=== PATIENT | male | born 1950 | race Caucasian/White ===

== ENCOUNTER 2017-03-23 16:55 | Emergency (ER) | payer MEDICAID ==
[2017-03-23] MEDS ORDERED: TETANUS/DIPHTHERIA/PERTUSSIS 0.5 ML SYRINGE IM ONE ×2 (17:46→18:03)
[2017-03-23 18:04] LABS: BASOPHILS # (AUTO) 0.1 10^3/uL (0.0-0.1); BASOPHILS % (AUTO) 2.9 %; EOSINOPHILS # (AUTO) 0.1 10^3/uL (0.0-0.7); EOSINOPHILS % (AUTO) 1.7 %; HCT - HEMATOCRIT 36.7 % (42.0-52.0); HGB - HEMOGLOBIN 12.6 g/dL (14.0-18.0); LYMPHOCYTES # (AUTO) 1.3 10^3/uL (1.5-3.5); LYMPHOCYTES % (AUTO) 41.4 %; MEAN CORPUSCULAR HEMOGLOBIN 34.5 pg (27.0-31.0); MEAN CORPUSCULAR HGB CONC 34.2 g/dL (32.0-36.0); MEAN CORPUSCULAR VOLUME 100.7 fL (80.0-94.0); MEAN PLATELET VOLUME 7.8 fL (7.4-11.4); MONOCYTES # (AUTO) 0.2 10^3/uL (0.0-1.0); MONOCYTES % (AUTO) 7.7 %; NEUTROPHILS # (AUTO) 1.5 10^3/uL (1.5-6.6); NEUTROPHILS % (AUTO) 46.3 %; RED BLOOD COUNT 3.64 10^6/uL (4.70-6.10); UNCORRECTED WHITE BLOOD COUNT 3.2 x10^3/uL; WHITE BLOOD COUNT 3.2 x10^3/uL (4.8-10.8)
[2017-03-23 18:17] LABS: ALBUMIN/GLOBULIN RATIO 1.1 (1.0-2.2); BILIRUBIN,TOTAL 0.4 mg/dL (0.2-1.0); CALCIUM 8.9 mg/dL (8.5-10.3); POTASSIUM 3.4 mmol/L (3.5-5.0); TOTAL PROTEIN 7.7 g/dL (6.7-8.2)
--- NOTE | 2017-03-23 19:05 | ED Physician Documentation ---
History of Present Illness - Stated complaint Stated Complaint: R/L ARM WOUNDS - Chief complaint Chief Complaint: Heent - History obtained from History obtained from: Patient - Additonal information Additional information: The patient is a 66-year-old male who presents with bruising on his forearms. He states that his skin bruises and bleeds by merely bumping into something. He does not take any blood thinner medication, and does not use steroids. He states, "I drink a little beer now and then." He admits to past history of heavy drinking whiskey, but states that he drinks hard liquor. He denies any recent traumatic injuries. Review of Systems Constitutional: denies: Fever Ears: denies: Tinnitus/ringing Nose: denies: Congestion Throat: denies: Sore throat Cardiac: denies: Chest pain / pressure, Palpitations Respiratory: denies: Dyspnea, Cough GI: denies: Abdominal Pain, Nausea, Vomiting : denies: Dysuria Skin: reports: Other (bruising of forearms) Musculoskeletal: denies: Neck pain, Back pain, Extremity pain Neurologic: denies: Focal weakness, Numbness, Headache Endocrine: reports: Easy bruising / bleeding PD PAST MEDICAL HISTORY - Past Medical History Endocrine/Autoimmune: None GI: GI bleed Musculoskeletal: Osteoarthritis, Chronic back pain - Past Surgical History Past Surgical History: No Ortho: Other - Present Medications Home Medications: Ambulatory Orders Medication Instructions Recorded Confirmed No Known Home Medications [No 02/07/16 02/07/16 Known Home Medications] - Allergies Allergies/Adverse Reactions: Allergies Allergy/AdvReac Type Severity Reaction Status Date / Time No Known Drug Allergies Allergy Verified 02/07/16 17:43 - Social History Does the pt smoke?: Yes Does the pt drink ETOH?: Yes ETOH Use: Beer Does the pt have substance abuse?: No - Immunizations Immunizations are current?: No PD ED PE NORMAL - Vitals Vital signs reviewed: Yes (normal) - General General: Alert and oriented X 3, Well developed/nourished, Other (Stale odor of alcohol on breath.) - HEENT HEENT: Atraumatic, EOMI, Pharynx benign - Neck Neck: Supple, no meningeal sign, No adenopathy, No JVD - Cardiac Cardiac: RRR, No murmur - Respiratory Respiratory: No respiratory distress, Clear bilaterally - Abdomen Abdomen: Soft, Non tender, No organomegaly - Back Back: No CVA TTP - Derm Derm: No rash - Extremities Extremities: No edema, No calf tenderness / cord, Other (There are numerous patches of superficial ecchymosis of the dorsums of both forearms, with few superficial skin tears.) - Neuro Neuro: Alert and oriented X 3, No motor deficit, Normal speech Results - Vitals Vitals: Vital Signs - 24 hr 03/23/17 03/23/17 16:59 19:12 Temperature 36.1 C L 36.1 C L Heart Rate 114 H 92 Respiratory 20 18 Rate Blood Pressure 120/73 121/79 O2 Saturation 96 97 Oxygen O2 Source Room air - Labs Labs: Laboratory Tests 03/23/17 03/23/17 17:55 17:55 WBC 3.2 L RBC 3.64 L Hgb 12.6 L Hct 36.7 L MCV 100.7 H MCH 34.5 H MCHC 34.2 RDW 14.0 Plt Count 194 MPV 7.8 Neut # 1.5 Lymph # 1.3 L [place] # 0.2 Eos # 0.1 Baso # 0.1 Absolute Nucleated RBC 0.00 Nucleated RBCs 0.0 Sodium 135 Potassium 3.4 L Chloride 105 Carbon Dioxide 20 L Anion Gap 10.0 BUN 10 Creatinine 1.0 Estimated GFR (MDRD) 75 L Glucose 148 H Calcium 8.9 Total Bilirubin 0.4 AST 32 ALT 24 Alkaline Phosphatase 73 Total Protein 7.7 Albumin 4.1 Globulin 3.6 Albumin/Globulin Ratio 1.1 Lipase 47 PD MEDICAL DECISION MAKING - ED course Complexity details: reviewed results, considered differential, d/w patient ED course: The patient's presentation with easy bruising and skin tears on his forearms is most consistent with capillary fragility, which is commonly seen in people with chronic alcoholism. I discussed this with the patient, advising that there is no other specific treatment for this condition but that refraining from alcohol may help it from getting progressively worse. Departure - Departure Disposition: 01 Home, Self Care Clinical Impression: Capillary fragility Condition: Stable Instructions: ED Avulsion Dermal Follow-Up: [facility] [Provider Group] Comments: Try to refrain from alcohol. You can apply antibiotic ointment to the superficial skin tears. Follow up with your primary physician within 2 weeks. Call to schedule appointment. Return to the emergency department if you develop any sign of infection, or otherwise worsening symptoms. Discharge Date/Time: 03/23/17 19:12
[2017-03-23 19:19] VITALS: BP 121/79
== END 2017-03-23 19:12 | disposition home or self-care (01) ==
LOC: ED 16:55
DX: D69.8 Other specified hemorrhagic conditions (principal); M19.90 Unspecified osteoarthritis, unspecified site
CPT/HCPCS: 36415; 80053; 83690; 85025; 90471; 99283

== ENCOUNTER 2018-05-24 18:19 | Outpatient (CLI) | payer MEDICAID, MEDICARE | END 2018-05-24 18:20 | disposition critical access hospital (66) | LOC: EMS 18:19 | PROVIDERS: ATTEND Surgery | DX: M54.9 Dorsalgia, unspecified (principal) | CPT/HCPCS: A0425; A0429; A0999 ==

== ENCOUNTER 2018-05-24 18:40 | Emergency (ER) | payer MEDICAID, MEDICARE ==
[2018-05-24 18:58] VITALS: BP 131/100
--- NOTE | 2018-05-24 19:21 | ED Physician Documentation ---
History of Present Illness - Stated complaint Stated Complaint: ETOH/BACK PAIN - Chief complaint Chief Complaint: Back Pain - History obtained from History obtained from: Patient, EMS - History of Present Illness Timing: Chronic Pain level max: 8 Pain level now: 0 - Additonal information Additional information: Patient is a 67-year-old male with chronic back pain he states his back pain became worse today. States that is better now. States he has only drinks a beer and a half today. He is visibly intoxicated. There was no fall or trauma. He is ambulating and moving without any difficulty in the ED. Review of Systems Ten Systems: 10 systems reviewed and negative Constitutional: denies: Fever, Chills Eyes: denies: Decreased vision Ears: denies: Ear pain Nose: denies: Rhinorrhea / runny nose, Congestion Throat: denies: Sore throat Cardiac: denies: Chest pain / pressure Respiratory: denies: Cough GI: denies: Abdominal Pain, Nausea, Vomiting, Diarrhea Skin: denies: Rash Musculoskeletal: denies: Neck pain, Back pain Neurologic: denies: Focal weakness, Numbness, Headache PD PAST MEDICAL HISTORY - Past Medical History Past Medical History: Yes Endocrine/Autoimmune: None GI: GI bleed Musculoskeletal: Osteoarthritis, Chronic back pain - Past Surgical History Past Surgical History: No Ortho: Other - Present Medications Home Medications: Ambulatory Orders Medication Instructions Recorded Confirmed No Known Home Medications 02/07/16 02/07/16 - Allergies Allergies/Adverse Reactions: Allergies Allergy/AdvReac Type Severity Reaction Status Date / Time No Known Drug Allergies Allergy Verified 02/07/16 17:43 - Social History Does the pt smoke?: Yes Smoking Status: Current every day smoker Does the pt drink ETOH?: Yes ETOH Use: Beer Does the pt have substance abuse?: No - Immunizations Immunizations are current?: No - POLST Patient has POLST: No PD ED PE NORMAL - Vitals Vital signs reviewed: Yes - General General: Alert and oriented X 3, No acute distress - HEENT HEENT: Atraumatic, PERRL, Moist mucous membranes - Neck Neck: Supple, no meningeal sign, No bony TTP - Cardiac Cardiac: RRR, Strong equal pulses - Respiratory Respiratory: No respiratory distress, Clear bilaterally - Abdomen Abdomen: Soft, Non tender, Non distended - Back Back: No spinal TTP (no step off or deformity), Other (Normal bilateral lower extremity patellar and ankle jerk reflexes. Normal great toe extension bilaterally. no saddle anesthesia) - Derm Derm: Warm and dry - Extremities Extremities: No edema, No calf tenderness / cord - Neuro Neuro: Alert and oriented X 3 - Psych Psych: Normal mood, Normal affect Results - Vitals Vitals: Vital Signs - 24 hr 05/24/18 18:48 Temperature 36.6 C Heart Rate 83 Respiratory 16 Rate Blood Pressure 131/100 H O2 Saturation 98 Oxygen O2 Source Room air PD MEDICAL DECISION MAKING - ED course Complexity details: considered differential (No cauda equina, no spinal epidural abscess, no fracture, no aortic dissection or evidence of aneursym rupture), d/w patient ED course: Patient is a 67-year-old male who complains of chronic back pain. No acute changes today. He is intoxicated though he is not slurring his words and ambulates with a steady gait. Counseled to follow-up with his doctor for further care. No evidence of acute fracture. No bruises. No step-off or deformity. No tenderness. Ambulating without any difficulty. Patient counseled regarding signs and symptoms for which I believe and urgent re- evaluation would be necessary. Patient with good understanding of and agreement to plan and is comfortable going home at this time This document was made in part using voice recognition software. While efforts are made to proofread this document, sound alike and grammatical errors may occur. - Sepsis Event Vital Signs: Vital Signs - 24 hr 05/24/18 18:48 Temperature 36.6 C Heart Rate 83 Respiratory 16 Rate Blood Pressure 131/100 H O2 Saturation 98 Oxygen O2 Source Room air Departure - Departure Disposition: 01 Home, Self Care Clinical Impression: Back pain Qualifiers: Back pain location: low back pain Chronicity: chronic Back pain laterality: bilateral Sciatica presence: without sciatica Qualified Code(s): M54.5 - Low back pain Alcohol intoxication Qualifiers: Complication of substance-induced condition: uncomplicated Qualified Code(s): F10.920 - Alcohol use, unspecified with intoxication, uncomplicated Condition: Good Instructions: ED Alcohol Intoxication, ED Neck Back Pain General Follow-Up: your,doctor in 1 week [Other] Comments: Follow-up with your doctor for further care of your back. Discharge Date/Time: 05/24/18 19:39
== END 2018-05-24 19:39 | disposition home or self-care (01) ==
LOC: EDUNIT# → ED 18:40
DX: M54.5 Low back pain (principal); F10.920 Alcohol use, unspecified with intoxication, uncomplicated; G89.29 Other chronic pain; F17.200 Nicotine dependence, unspecified, uncomplicated
CPT/HCPCS: 99282; 99283

== ENCOUNTER 2019-03-22 18:59 | Outpatient (CLI) | payer MEDICARE | END 2019-03-22 19:00 | disposition critical access hospital (66) | LOC: EMS 18:59 | PROVIDERS: ATTEND Surgery | DX: S01.81XA Laceration without foreign body of other part of head, initial encounter (principal); R55 Syncope and collapse; W18.39XA Other fall on same level, initial encounter | CPT/HCPCS: A0425; A0429 ==

== ENCOUNTER 2019-03-22 19:21 | Emergency (ER) | payer MEDICARE ==
--- NOTE | 2019-03-22 19:24 | ED Physician Documentation ---
PD HPI HEAD INJURY - Stated complaint Stated Complaint: GLF/HEAD INJ/LOC - History obtained from History obtained from: Patient - History of Present Illness Mechanism of head injury: Fell (he says he does not know why he fell. Remembers the fall and striking head. Does not think he passed out.) Timing - onset: Today Location of injury: Front Quality of pain: Aching Associated symptoms: No: LOC, AMS, Nausea / vomiting Symptoms worsen with: Palpation Contributing factors: Intoxicated. No: Anticoagulated Similar symptoms before: Diagnosis (has had other falls when intoxicated.) Review of Systems Constitutional: denies: Fever Nose: denies: Rhinorrhea / runny nose, Congestion Throat: denies: Sore throat Respiratory: denies: Cough GI: denies: Abdominal Pain, Nausea, Vomiting, Diarrhea Skin: reports: Laceration (s) (from fall [employer]). denies: Rash, Lesions Musculoskeletal: reports: Neck pain (today after fall), Back pain (ongoing chronic mid back pain) Neurologic: reports: Headache (frontal area), Head injury. denies: Focal weakness, Numbness, Altered mental status Endocrine: denies: Easy bruising / bleeding Immunocompromised: denies: Immunocompromised PD PAST MEDICAL HISTORY - Past Medical History Cardiovascular: None Respiratory: None Neuro: None Endocrine/Autoimmune: None GI: GI bleed Musculoskeletal: Osteoarthritis, Chronic back pain - Past Surgical History Past Surgical History: No Ortho: Other - Present Medications Home Medications: Ambulatory Orders Medication Instructions Recorded Confirmed Naproxen 375 mg PO BID #20 tablet 03/22/19 dexAMETHasone [Decadron] 4 mg PO DAILY #5 tablet 03/22/19 - Allergies Allergies/Adverse Reactions: Allergies Allergy/AdvReac Type Severity Reaction Status Date / Time No Known Drug Allergies Allergy Verified 03/22/19 19:32 - Social History Does the pt smoke?: Yes Smoking Status: Current every day smoker Does the pt drink ETOH?: Yes Does the pt have substance abuse?: No - Immunizations Immunizations are current?: No - POLST Patient has POLST: No PD ED PE NORMAL - Vitals Vital signs reviewed: Yes - General General: Alert and oriented X 3 (repetitive some, but not perseveration like head injury. Seems more forgetful of what he has already said. Slight slurring of speech. Smell of alcohol on breath. ), No acute distress, Well developed/nourished - HEENT HEENT: PERRL, EOMI, Pharynx benign, Other (forehead laceration vertical, 1.5 cm, no FB nor bleeding at this time. Some mild abrasions on forehead as well. ) - Neck Neck: Supple, no meningeal sign, No adenopathy, Other (not tender in neck, but claims some pain with ROM as he moves it around in full ROM. ) - Cardiac Cardiac: RRR, No murmur - Respiratory Respiratory: Clear bilaterally, Other (no chestwall tenderness) - Abdomen Abdomen: Soft, Non tender - Back Back: No CVA TTP, No spinal TTP - Derm Derm: Normal color, Warm and dry - Extremities Extremities: No tenderness to palpate, Normal ROM s pain - Neuro Neuro: Alert and oriented X 3, No motor deficit, No sensory deficit, Normal speech Eye Opening: Spontaneous Motor: Obeys Commands Verbal: Oriented GCS Score: 15 Results - Vitals Vitals: Vital Signs - 24 hr 03/22/19 21:28 Heart Rate 70 Respiratory 20 Rate Blood Pressure 118/74 O2 Saturation 99 Oxygen O2 Source Room air - Labs Labs: Laboratory Tests 03/22/19 03/22/19 19:54 19:54 WBC 4.8 RBC 3.67 L Hgb 12.1 L Hct 35.7 L MCV 97.3 H MCH 33.0 H MCHC 33.9 RDW 13.4 Plt Count 210 MPV 9.4 Neut # (Auto) 2.3 Lymph # (Auto) 2.0 [place] # (Auto) 0.4 Eos # (Auto) 0.1 Baso # (Auto) 0.1 Absolute Nucleated RBC 0.00 Nucleated RBC % 0.0 Sodium 133 L Potassium 3.8 Chloride 103 Carbon Dioxide 18 L Anion Gap 12.0 BUN 13 Creatinine 0.9 Estimated GFR (MDRD) 84 L Glucose 95 Calcium 8.2 L Magnesium 2.1 Total Bilirubin 0.4 AST 21 ALT 13 Alkaline Phosphatase 71 Total Protein 6.8 Albumin 3.8 Globulin 3.0 Albumin/Globulin Ratio 1.3 Lipase 33 Ethyl Alcohol 250.8 Procedures - Laceration (location) forehead Length in cm: 1.5 Wound type: Linear, Into subcut fat, Clean Neurovascular status: Sensory intact Wound Preparation: Irrigated copiously NS, Wound explored, To the base. No: FB identified Skin layer closure: Dermabond, Steri strips Other: Patient tolerated well, Tetanus UTD Complexity: Simple PD MEDICAL DECISION MAKING - ED course Complexity details: reviewed results, re-evaluated patient, considered differential, d/w patient Departure - Departure Disposition: 01 Home, Self Care Clinical Impression: Alcohol intoxication Qualifiers: Complication of substance-induced condition: uncomplicated Qualified Code(s): F10.920 - Alcohol use, unspecified with intoxication, uncomplicated Accidental fall Qualifiers: Encounter type: initial encounter Qualified Code(s): W19.XXXA - Unspecified fall, initial encounter Chronic back pain Qualifiers: Back pain location: back pain in unspecified location Back pain laterality: unspecified Qualified Code(s): M54.9 - Dorsalgia, unspecified Forehead laceration Qualifiers: Encounter type: initial encounter Qualified Code(s): S01.81XA - Laceration without foreign body of other part of head, initial encounter Condition: Stable Record reviewed to determine appropriate education?: Yes Instructions: ED Alcohol Intoxication, ED Laceration Facial Skin Glue Prescriptions: dexAMETHasone [Decadron] 4 mg PO DAILY #5 tablet Naproxen 375 mg PO BID #20 tablet Comments: Keep the wound clean and dry. Allow the Steri-Strips to fall off on their own after several days to week. Avoid excess alcohol. For your back pains, use naproxen anti-inflammatories twice daily with food. You could also use Decadron steroid anti-inflammatory for the next several days. See if this will help some ear pains acutely. Follow-up with your primary care. Discharge Date/Time: 03/22/19 21:38
[2019-03-22] MEDS ORDERED: SODIUM CHLORIDE 0.9% 1,000 ML IV ONE (19:46)
[2019-03-22] MEDS ORDERED: KETOROLAC 15 MG/ML VIAL IVP STA (19:47)
[2019-03-22 19:59] LABS: BASOPHILS # (AUTO) 0.1 10^3/uL (0.0-0.1); BASOPHILS % (AUTO) 1.2 %; EOSINOPHILS # (AUTO) 0.1 10^3/uL (0.0-0.7); EOSINOPHILS % (AUTO) 1.9 %; HGB - HEMOGLOBIN 12.1 g/dL (14.0-18.0); LYMPHOCYTES % (AUTO) 42.4 %; MEAN CORPUSCULAR HGB CONC 33.9 g/dL (32.0-36.0); MEAN CORPUSCULAR VOLUME 97.3 fL (80.0-94.0); MEAN PLATELET VOLUME 9.4 fL (7.4-11.4); MONOCYTES # (AUTO) 0.4 10^3/uL (0.0-1.0); MONOCYTES % (AUTO) 7.5 %; NEUTROPHILS # (AUTO) 2.3 10^3/uL (1.5-6.6); NEUTROPHILS % (AUTO) 46.8 %; PLT - PLATELET COUNT 210 10^3/uL (130-450); RED BLOOD COUNT 3.67 10^6/uL (4.70-6.10); RED CELL DISTRIBUTION WIDTH 13.4 % (12.0-15.0); WHITE BLOOD COUNT 4.8 x10^3/uL (4.8-10.8)
[2019-03-22 20:12] LABS: ALBUMIN 3.8 g/dL (3.2-5.5); ALBUMIN/GLOBULIN RATIO 1.3 (1.0-2.2); BILIRUBIN,TOTAL 0.4 mg/dL (0.2-1.0); CALCIUM 8.2 mg/dL (8.5-10.3); CREATININE 0.9 mg/dL (0.6-1.2); MAGNESIUM 2.1 mg/dL (1.7-2.8); TOTAL PROTEIN 6.8 g/dL (6.7-8.2)
--- NOTE | 2019-03-22 20:33 | CT Report ---
Reason: fall and struck head with LOC Procedure Date: 03/22/2019 Accession Number: [id number] / [id number] Procedure: CT - HEAD WO CPT Code: FULL RESULT: EXAM: CT HEAD EXAM DATE: 03/22/2019 08:02 PM. CLINICAL HISTORY: Fall and struck head with LOC. COMPARISON: None. TECHNIQUE: Multiaxial CT images were obtained from the foramen magnum to the vertex. Reformats: Sagittal and coronal. IV contrast: None. In accordance with CT protocol optimization, one or more of the following dose reduction techniques were utilized for this exam: automated exposure control, adjustment of mA and/or KV based on patient size, or use of iterative reconstructive technique. FINDINGS: Parenchyma: No intraparenchymal hemorrhage. No evidence of mass, midline shift, or CT findings of acute infarction. Bell-white differentiation is distinct. Diffuse chronic microangiopathic white matter changes are evident. Extraaxial Spaces: Normal for age. No subdural or epidural collections identified. Ventricles: The ventricles and cortical sulci are enlarged, consistent with age-related tissue loss. Sinuses and orbits: Circumferential lobular mucosal thickening in right maxillary sinus with mixed air/fluid and mucus. Mucosal thickening within a few ethmoid air cells on the right greater than left. Pattern not suggestive of posttraumatic change. Imaged paranasal sinuses, orbits, and mastoids otherwise show no significant abnormality. Bones: No evidence of fracture or calvarial defect. Other: None. IMPRESSION: 1. Generalized age-related cortical atrophic changes without evidence of acute intracranial abnormality. No hemorrhage. No acute posttraumatic change. 2. Circumferential mucosal thickening in right maxillary sinus with mucus/air fluid level. Pattern not suggestive of acute posttraumatic change. 3. Exam otherwise as above. RADIA
--- NOTE | 2019-03-22 20:39 | CT Report ---
Reason: fall and struck head/neck pain Procedure Date: 03/22/2019 Accession Number: [id number] / [id number] Procedure: CT - CERVICAL SPINE WO CPT Code: FULL RESULT: EXAM: CT CERVICAL SPINE WITHOUT CONTRAST DATE: 03/22/2019 08:11 PM. HISTORY: Fall and struck head/neck pain. COMPARISONS: XR CERVICAL SPINE 2 OR 3 VIEWS 10/19/2007 8:41 PM. TECHNIQUE: Thin-section axial images were acquired of the cervical spine without contrast. Post-processing: Coronal and sagittal reformats. Other: None. In accordance with CT protocol optimization, one or more of the following dose reduction techniques were utilized for this exam: automated exposure control, adjustment of mA and/or KV based on patient size, or use of iterative reconstructive technique. FINDINGS: Alignment: Mild leftward convex curve again seen. No rotational abnormality. Minimal anterolisthesis C4 and C5 unchanged. Minimal anterolisthesis C7 on T1 also unchanged compared to prior plain film exam from 2007. No new spondylolisthesis. Bones: No fracture or bone lesion. Interspace Levels/Facets: C1-C2: Unremarkable C2-C3: No canal stenosis. Facet hypertrophy greater on the right. C3-C4: Mild disk space narrowing and endplate spurring. Facet hypertrophy greater on the right. No canal stenosis. C4-C5: Anterolisthesis. Disk space narrowing. Asymmetric uncovertebral joint and facet hypertrophy on the right. Mild right foraminal stenosis. No left foraminal stenosis. No canal stenosis. C5-C6: Severe disk space narrowing and endplate spurring are again seen. Uncovertebral joint and facet hypertrophy greater on the right. Moderate right foraminal stenosis. Mild relative canal narrowing. No left foraminal stenosis. C6-C7: Severe disk space narrowing and endplate spurring with bridging osteophyte anteriorly. Facet hypertrophy and uncovertebral joint hypertrophy greater on the left. Relatively severe left foraminal stenosis. Mild right foraminal narrowing. C7-T1: Anterolisthesis. No canal stenosis. Bilateral facet hypertrophy. No foraminal stenosis. Musculature: Normal. No fatty atrophy. Other: The paravertebral and prevertebral soft tissues are unremarkable. The lung apices are clear. IMPRESSION: 1. No acute posttraumatic change. No fracture. No abnormal soft tissue swelling. 2. Interval increase in chronic spondylotic changes in cervical spine with minimal degenerative anterolisthesis C4 on C5 and C7 on T1, similar to findings on prior C-spine exam. 3. Examination otherwise as detailed above. RADIA
[2019-03-22] MEDS: LIDOCAINE-EPINEPH-TETRACAINE 3 ML SYRINGE TOP STA ×2 (20:45→20:46)
[2019-03-22 21:42] VITALS: BP 118/74
== END 2019-03-22 21:38 | disposition home or self-care (01) ==
LOC: EDUNIT# → EDBD → ED 19:21
DX: S01.81XA Laceration without foreign body of other part of head, initial encounter (principal); S00.81XA Abrasion of other part of head, initial encounter; W18.30XA Fall on same level, unspecified, initial encounter; F10.920 Alcohol use, unspecified with intoxication, uncomplicated; M47.812 Spondylosis without myelopathy or radiculopathy, cervical region; M54.9 Dorsalgia, unspecified; G89.29 Other chronic pain; F17.200 Nicotine dependence, unspecified, uncomplicated
CPT/HCPCS: 12011; 36415; 70450; 72125; 80053; 80320; 83690; 83735; 85025; 96361; 96374

== ENCOUNTER 2019-09-18 19:11 | Outpatient (CLI) | payer MEDICARE | END 2019-09-18 19:12 | disposition critical access hospital (66) | LOC: EMS 19:11 | PROVIDERS: ATTEND Surgery | DX: R53.1 Weakness (principal) | CPT/HCPCS: A0425; A0429 ==

== ENCOUNTER 2019-09-18 19:31 | Emergency (ER) | payer MEDICARE ==
[2019-09-18] MEDS ORDERED: SODIUM CHLORIDE 0.9% 1,000 ML IV STA (19:38)
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
[2019-09-18 20:02] LABS: BASOPHILS % (AUTO) 0.8 %; EOSINOPHILS % (AUTO) 0.8 %; HGB - HEMOGLOBIN 14.8 g/dL (14.0-18.0); LYMPHOCYTES # (AUTO) 0.9 10^3/uL (1.5-3.5); LYMPHOCYTES % (AUTO) 16.3 %; MEAN CORPUSCULAR HEMOGLOBIN 33.3 pg (27.0-31.0); MEAN CORPUSCULAR VOLUME 97.8 fL (80.0-94.0); MEAN PLATELET VOLUME 9.1 fL (7.4-11.4); MONOCYTES # (AUTO) 0.7 10^3/uL (0.0-1.0); MONOCYTES % (AUTO) 12.3 %; NEUTROPHILS # (AUTO) 3.7 10^3/uL (1.5-6.6); NEUTROPHILS % (AUTO) 69.6 %; PLT - PLATELET COUNT 156 10^3/uL (130-450); RED BLOOD COUNT 4.45 10^6/uL (4.70-6.10); RED CELL DISTRIBUTION WIDTH 13.8 % (12.0-15.0); WHITE BLOOD COUNT 5.3 x10^3/uL (4.8-10.8)
[2019-09-18 20:18] LABS: ALBUMIN 4.2 g/dL (3.2-5.5); BILIRUBIN,TOTAL 0.7 mg/dL (0.2-1.0); MAGNESIUM 1.9 mg/dL (1.7-2.8); TOTAL PROTEIN 8.4 g/dL (6.7-8.2)
--- NOTE | 2019-09-18 20:25 | XRAY Report ---
Reason: Chest Pain Procedure Date: 09/18/2019 Accession Number: [id number] / [id number] Procedure: XR - Chest 1 View X-Ray CPT Code: 64999 Final Report FULL RESULT: EXAM: CHEST RADIOGRAPHY EXAM DATE: 09/18/2019 08:10 PM. CLINICAL HISTORY: Chest Pain. COMPARISON: 09/22/2009 11:19 AM. TECHNIQUE: 1 view. FINDINGS: Evaluation somewhat limited by rotation. Lungs/Pleura: No infiltrates. No pleural effusions or pneumothorax. Mediastinum: Heart size likely within normal limits given technique. Osseous structures: No significant focal osseous lesions. IMPRESSION: 1. Evaluation somewhat limited by rotation. 2. No definite acute cardiopulmonary findings radiographically. RADIA
[2019-09-18 21:08] LABS: BILIRUBIN,URINE NEGATIVE (NEGATIVE); GLUCOSE, URINE (UA) NEGATIVE (NEGATIVE); KETONES,URINE (UA) TRACE mg/dL (NEGATIVE); LEUKOCYTE ESTERASE, URINE NEGATIVE (NEGATIVE); NITRITE,URINE NEGATIVE (NEGATIVE); OCCULT BLOOD,URINE NEGATIVE (NEGATIVE); PROTEIN,URINE NEGATIVE (NEGATIVE); UROBILINOGEN,URINE 1 (NORMAL) E.U./dL (NORMAL)
[2019-09-18 21:10] LABS: CLARITY,URINE CLEAR (CLEAR)
[2019-09-19 08:00] LABS: PHOSPHORUS 3.9 mg/dL (2.5-4.6)
[2019-09-19 12:36] VITALS: BP 130/99
--- NOTE | 2019-09-19 14:42 | ED Physician Documentation ---
ED Addendum - Addendum Addendum: 09/19/19 14:39 The patient has been here in the emergency department with out any consequence. He was seen by social work and they researched his potential possibilities of in-home longterm health care physical therapy and such. He apparently did not have any criteria enough for hospitalization. He was having generalized weakness gradually and now to the point of having difficulty walking. We can see if a walker will help him. Reportedly he does not have resources or meet criteria for rehab or halfway facility. He will be discharged home with a walker and to continue usual medications and stay well-hydrated. He does not appear to be on any statin medication. His electrolytes were reasonable. Prognosis generalized weakness #2 leg muscle weakness #3 deconditioning #4 difficulty walking Disposition the patient is discharged home in stable condition.
== END 2019-09-19 14:58 | disposition home or self-care (01) ==
LOC: EDUNIT# → ED 19:31
DX: M62.81 Muscle weakness (generalized) (principal); R26.2 Difficulty in walking, not elsewhere classified; E87.1 Hypo-osmolality and hyponatremia; F17.210 Nicotine dependence, cigarettes, uncomplicated
CPT/HCPCS: 36415; 71045; 80053; 81001; 81003; 82550; 83690; 83735; 83880; 84100; 84443; 84484; 85025; 85651; 87086; 93005; 99284

== ENCOUNTER 2019-09-19 17:22 | Outpatient (CLI) | payer MEDICARE | END 2019-09-19 17:23 | disposition critical access hospital (66) | LOC: EMS 17:22 | PROVIDERS: ATTEND Surgery | DX: R53.1 Weakness (principal) | CPT/HCPCS: A0425; A0429 ==

== ENCOUNTER 2019-09-19 17:44 | Emergency (ER) | payer MEDICARE ==
--- NOTE | 2019-09-19 19:39 | ED Physician Documentation ---
History of Present Illness - Stated complaint Stated Complaint: WEAKNESS - Chief complaint Chief Complaint: General - History obtained from History obtained from: Patient (Patient return to the emergency room complaint of weakness. He was trying to get to the toilet however not able to make too far and slumped over. There is no bony injury. The emergency room patient is alert and oriented x3. He is able to describe symptoms very clearly. He was seen by me yesterday and had social service interviewThis morning. Information was provided to him. According to the registered nurse who took the report from the golf course architect, supposedly there was to call to the [employer] golf course architect today. The golf course architect felt that they are obligated with the patient back for evaluation and did not want to abandon the patient back to his trailer.To my consultation today, patient is able to pull by holding the rail. He is able to lift off his lower extremity and R for 10 seconds. There is no obvious injury. No bony tenderness,) - History of Present Illness Timing: How many days ago (5-7) Review of Systems Ten Systems: 10 systems reviewed and negative Constitutional: reports: Reviewed and negative Eyes: reports: Reviewed and negative Ears: reports: Reviewed and negative Nose: reports: Reviewed and negative Throat: reports: Reviewed and negative Cardiac: reports: Reviewed and negative Respiratory: reports: Reviewed and negative GI: reports: Reviewed and negative : reports: Reviewed and negative Skin: reports: Reviewed and negative Musculoskeletal: reports: Reviewed and negative Neurologic: reports: Generalized weakness, Reviewed and negative Psychiatric: reports: Reviewed and negative Endocrine: reports: Reviewed and negative Immunocompromised: reports: Reviewed and negative PD PAST MEDICAL HISTORY - Past Medical History Cardiovascular: None Respiratory: None Neuro: None Endocrine/Autoimmune: None GI: GI bleed Musculoskeletal: Osteoarthritis, Chronic back pain - Past Surgical History Past Surgical History: No Ortho: Other - Present Medications Home Medications: Ambulatory Orders Medication Instructions Recorded Confirmed No Known Home Medications 09/18/19 09/18/19 - Allergies Allergies/Adverse Reactions: Allergies Allergy/AdvReac Type Severity Reaction Status Date / Time No Known Drug Allergies Allergy Verified 09/18/19 19:39 - Social History Does the pt smoke?: Yes Smoking Status: Current every day smoker Does the pt drink ETOH?: Yes Does the pt have substance abuse?: No - Immunizations Immunizations are current?: No - POLST Patient has POLST: No PD ED PE NORMAL - Vitals Vital signs reviewed: Yes - General General: Alert and oriented X 3, No acute distress, Other (unkempt individual) - HEENT HEENT: Atraumatic, PERRL, EOMI, Ears normal, Moist mucous membranes, Pharynx benign - Neck Neck: Supple, no meningeal sign - Cardiac Cardiac: RRR, No murmur - Respiratory Respiratory: No respiratory distress, Clear bilaterally - Abdomen Abdomen: Normal bowel sounds, Soft, Non tender, Non distended - Derm Derm: Warm and dry - Extremities Extremities: No deformity, No tenderness to palpate, Normal ROM s pain - Neuro Neuro: Alert and oriented X 3 Eye Opening: Spontaneous Motor: Obeys Commands Verbal: Oriented GCS Score: 15 - Psych Psych: Normal mood, Normal affect Results - Vitals Vitals: Vital Signs - 24 hr 09/19/19 09/19/19 17:45 23:46 Temperature 37 C Heart Rate 97 88 Respiratory 18 14 Rate Blood Pressure 148/92 H 127/81 H O2 Saturation 98 94 Oxygen O2 Source Room air - Labs Labs: Laboratory Tests 09/19/19 09/19/19 09/19/19 20:09 20:09 20:09 WBC 5.4 RBC 4.23 L Hgb 14.0 Hct 41.8 L MCV 98.8 H MCH 33.1 H MCHC 33.5 RDW 13.8 Plt Count 160 MPV 9.1 Neut # (Auto) 3.5 Lymph # (Auto) 1.1 L [place] # (Auto) 0.7 Eos # (Auto) 0.0 Baso # (Auto) 0.1 Absolute Nucleated RBC 0.00 Nucleated RBC % 0.0 Sodium 133 L Potassium 4.0 Chloride 99 L Carbon Dioxide 23 Anion Gap 11.0 BUN 18 Creatinine 1.2 Estimated GFR (MDRD) 60 L Glucose 104 H Lactic Acid Calcium 9.0 Total Bilirubin 0.5 AST 22 ALT 18 Alkaline Phosphatase 72 Ammonia < 10.0 Total Protein 8.0 Albumin 4.0 Globulin 4.0 Albumin/Globulin Ratio 1.0 Lipase 43 09/19/19 20:09 WBC RBC Hgb Hct MCV MCH MCHC RDW Plt Count MPV Neut # (Auto) Lymph # (Auto) [place] # (Auto) Eos # (Auto) Baso # (Auto) Absolute Nucleated RBC Nucleated RBC % Sodium Potassium Chloride Carbon Dioxide Anion Gap BUN Creatinine Estimated GFR (MDRD) Glucose Lactic Acid 0.8 Calcium Total Bilirubin AST ALT Alkaline Phosphatase Ammonia Total Protein Albumin Globulin Albumin/Globulin Ratio Lipase - Rads (name of study) No standard instances Radiology: Other (LS spine x-ray shows degenerative disease. There is no acute fracture.) PD MEDICAL DECISION MAKING - ED course Complexity details: d/w patient ED course: This is a difficult social situation with patient Has generalized deconditioning with proximal muscle weakness. Laboratory studies including CBC chemistry magnesium, TSH level are essentially negative with slight hyponatremia. We will do a repeat Laboratory study to see if hyponatremia has improved over the last 24 hours. In addition ammonia level to see if there is possibility of hepatic encephalopathy. Patient is reassessed at 930, at this time he is able to transfer himself from the chair in a sitting position to the bed. He is asked about specialist referral. I told him in the emergency room there is no acute finding and he will need to follow-up with a primary care doctor for referral to a specialist which may be a neurologist. We will continue investigating for the source of this weakness; will do LS-spine x-ray right now. This patient has been able to gently transfer himself on chair to bed and stand up for the staff while in the emergency room. He was seen yesterday. Physical therapy and outpatient arrangement has been are suggested by the social service during the encounter in the morning. I feel that he is medically able to be released to primary care doctor's office for management and or referral to physical therapy or neurologist. There is no indication to admit him to the hospital like yesterday's encnouter. Departure - Departure Disposition: 01 Home, Self Care Clinical Impression: Muscle weakness Condition: Stable Comments: Please establish a primary care doctor in follow-up. You may need to be referred to physical therapy, home health arrangement, and or neurologist. Discharge Date/Time: 09/19/19 23:47
[2019-09-19] MEDS ORDERED: SODIUM CHLORIDE 0.9% 1,000 ML IV STA (20:01)
[2019-09-19 20:16] LABS: BASOPHILS # (AUTO) 0.1 10^3/uL (0.0-0.1); BASOPHILS % (AUTO) 0.9 %; EOSINOPHILS % (AUTO) 0.7 %; LYMPHOCYTES # (AUTO) 1.1 10^3/uL (1.5-3.5); LYMPHOCYTES % (AUTO) 19.7 %; MEAN CORPUSCULAR HEMOGLOBIN 33.1 pg (27.0-31.0); MEAN CORPUSCULAR HGB CONC 33.5 g/dL (32.0-36.0); MEAN CORPUSCULAR VOLUME 98.8 fL (80.0-94.0); MEAN PLATELET VOLUME 9.1 fL (7.4-11.4); MONOCYTES # (AUTO) 0.7 10^3/uL (0.0-1.0); MONOCYTES % (AUTO) 13.4 %; NEUTROPHILS # (AUTO) 3.5 10^3/uL (1.5-6.6); NEUTROPHILS % (AUTO) 65.1 %; PLT - PLATELET COUNT 160 10^3/uL (130-450); RED BLOOD COUNT 4.23 10^6/uL (4.70-6.10); RED CELL DISTRIBUTION WIDTH 13.8 % (12.0-15.0); WHITE BLOOD COUNT 5.4 x10^3/uL (4.8-10.8)
[2019-09-19 20:28] LABS: BILIRUBIN,TOTAL 0.5 mg/dL (0.2-1.0); CREATININE 1.2 mg/dL (0.6-1.2)
--- NOTE | 2019-09-19 22:11 | XRAY Report ---
Reason: low back pain and weakness Procedure Date: 09/19/2019 Accession Number: [id number] / [id number] Procedure: XR - Lumbar Spine 2 View CPT Code: Final Report FULL RESULT: EXAM: LUMBOSACRAL SPINE RADIOGRAPHY EXAM DATE: 09/19/2019 09:55 PM. CLINICAL HISTORY: Low back pain and weakness. COMPARISONS: XR LUMBAR SPINE 2 OR 3 VIEWS 10/19/2007 8:41 PM. TECHNIQUE: 3 views. FINDINGS: Alignment: Very mild levoconvex curvature. No spondylolisthesis. Bones: Five [id number] lumbar vertebral bodies are present. No acute fracture seen. Disks: Moderate degenerative disk disease from T12-L5. Disk height at L5-S1 is preserved. Facets: Degenerative joint disease in the lower lumbar facet joints. Sacroiliac Joints: Unremarkable. Soft Tissues: Vascular calcifications. IMPRESSION: 1. Multilevel degenerative changes. No acute abnormality seen. RADIA
[2019-09-19 23:47] VITALS: BP 127/81
== END 2019-09-19 23:47 | disposition home or self-care (01) ==
LOC: EDUNIT# → ED 17:44
DX: M62.81 Muscle weakness (generalized) (principal); E87.1 Hypo-osmolality and hyponatremia; R26.2 Difficulty in walking, not elsewhere classified; M47.816 Spondylosis without myelopathy or radiculopathy, lumbar region; M51.35 Other intervertebral disc degeneration, thoracolumbar region; F17.210 Nicotine dependence, cigarettes, uncomplicated
CPT/HCPCS: 36415; 71045; 72100; 80053; 81003; 82140; 82550; 83605; 83690; 83735; 83880; 84100; 84443; 84484; 85025; 85651; 93005; 99284

== ENCOUNTER 2021-06-14 15:35 | Outpatient (CLI) | payer MEDICARE | END 2021-06-14 15:36 | disposition critical access hospital (66) | LOC: EMS 15:35 | DX: Z74.2 Need for assistance at home and no other household member able to render care (principal); M54.9 Dorsalgia, unspecified; G89.29 Other chronic pain | CPT/HCPCS: A0425; A0429 ==

== ENCOUNTER 2021-06-14 15:54 | Emergency (ER) | payer MEDICARE ==
[2021-06-14] MEDS ORDERED: KETOROLAC 60 MG/2 ML VIAL IM STA (16:28)
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
[2021-06-14 16:44] LABS: BASOPHILS # (AUTO) 0.1 10^3/uL (0.0-0.1); BASOPHILS % (AUTO) 1.1 %; EOSINOPHILS # (AUTO) 0.3 10^3/uL (0.0-0.7); EOSINOPHILS % (AUTO) 5.5 %; HCT - HEMATOCRIT 44.1 % (42.0-52.0); HGB - HEMOGLOBIN 15.5 g/dL (14.0-18.0); LYMPHOCYTES % (AUTO) 18.7 %; MEAN CORPUSCULAR HEMOGLOBIN 33.4 pg (27.0-31.0); MEAN CORPUSCULAR HGB CONC 35.1 g/dL (32.0-36.0); MEAN PLATELET VOLUME 8.8 fL (7.4-11.4); MONOCYTES # (AUTO) 0.4 10^3/uL (0.0-1.0); MONOCYTES % (AUTO) 7.8 %; NEUTROPHILS # (AUTO) 3.6 10^3/uL (1.5-6.6); NEUTROPHILS % (AUTO) 66.7 %; PLT - PLATELET COUNT 179 10^3/uL (130-450); RED BLOOD COUNT 4.64 10^6/uL (4.70-6.10); RED CELL DISTRIBUTION WIDTH 12.7 % (12.0-15.0); WHITE BLOOD COUNT 5.4 x10^3/uL (4.8-10.8)
[2021-06-14 16:55] LABS: ALBUMIN 4.3 g/dL (3.2-5.5); BILIRUBIN,TOTAL 0.2 mg/dL (0.2-1.0); CALCIUM 9.1 mg/dL (8.5-10.3); CREATININE 0.9 mg/dL (0.6-1.2); ETOH - ETHANOL 72.1 mg/dL; POTASSIUM 3.4 mmol/L (3.5-5.0); TOTAL PROTEIN 8.6 g/dL (6.7-8.2)
[2021-06-14] MEDS ORDERED: THIAMINE 100 MG TABLET PO STA (17:08)
[2021-06-14 17:14] VITALS: BP 124/86
== END 2021-06-14 17:31 | disposition home or self-care (01) ==
LOC: EDUNIT# → ED 15:54
DX: M54.40 Lumbago with sciatica, unspecified side (principal); G89.29 Other chronic pain; F10.20 Alcohol dependence, uncomplicated; E87.1 Hypo-osmolality and hyponatremia; F17.200 Nicotine dependence, unspecified, uncomplicated; Z74.2 Need for assistance at home and no other household member able to render care
CPT/HCPCS: 36415; 80053; 83690; 85025; 96372; 99283; A9270; G0480; 80320

== ENCOUNTER 2021-06-18 19:07 | Outpatient (CLI) | payer MEDICARE | END 2021-06-18 19:08 | disposition critical access hospital (66) | LOC: EMS 19:07 | DX: S09.90XA Unspecified injury of head, initial encounter (principal); M54.2 Cervicalgia; M54.50 Low back pain, unspecified; Y04.8XXA Assault by other bodily force, initial encounter; Y92.818 Other transport vehicle as the place of occurrence of the external cause | CPT/HCPCS: A0425; A0429 ==

== ENCOUNTER 2021-06-18 19:24 | Emergency (ER) | payer MEDICARE ==
[2021-06-18] MEDS ORDERED: KETOROLAC 30 MG/ML VIAL IVP STA (19:38)
[2021-06-18] MEDS ORDERED: SODIUM CHLORIDE 0.9% 1,000 ML IV STA (19:41)
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
[2021-06-18] MEDS ORDERED: HYDROmorphone 1 MG/ML CARPUJECT IVP STA (21:34)
[2021-06-19 01:17] VITALS: BP 130/86
== END 2021-06-19 03:05 | disposition home or self-care (01) ==
LOC: EDBD → EDUNIT# → ED 19:24
DX: S00.03XA Contusion of scalp, initial encounter (principal); S20.229A Contusion of unspecified back wall of thorax, initial encounter; Y04.2XXA Assault by strike against or bumped into by another person, initial encounter; F17.200 Nicotine dependence, unspecified, uncomplicated
CPT/HCPCS: 96374; 96375; 99284

== ENCOUNTER 2021-06-19 08:32 | Outpatient (CLI) | payer MEDICARE | END 2021-06-19 08:33 | disposition critical access hospital (66) | LOC: EMS 08:32 | DX: T68.XXXA Hypothermia, initial encounter (principal); R53.1 Weakness; X31.XXXA Exposure to excessive natural cold, initial encounter; W01.0XXA Fall on same level from slipping, tripping and stumbling without subsequent striking against object, initial encounter; Y93.01 Activity, walking, marching and hiking; Y92.096 Garden or yard of other non-institutional residence as the place of occurrence of the external cause; Z59.89 Other problems related to housing and economic circumstances | CPT/HCPCS: A0425; A0429 ==

== ENCOUNTER 2021-06-19 08:54 | Emergency (ER) | payer MEDICARE ==
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
[2021-06-19 09:32] LABS: BASOPHILS % (AUTO) 0.6 %; EOSINOPHILS % (AUTO) 0.2 %; HCT - HEMATOCRIT 43.4 % (42.0-52.0); HGB - HEMOGLOBIN 14.9 g/dL (14.0-18.0); LYMPHOCYTES # (AUTO) 0.5 10^3/uL (1.5-3.5); LYMPHOCYTES % (AUTO) 9.8 %; MEAN CORPUSCULAR HEMOGLOBIN 33.3 pg (27.0-31.0); MEAN CORPUSCULAR HGB CONC 34.3 g/dL (32.0-36.0); MEAN CORPUSCULAR VOLUME 96.9 fL (80.0-94.0); MEAN PLATELET VOLUME 9.2 fL (7.4-11.4); MONOCYTES # (AUTO) 0.4 10^3/uL (0.0-1.0); MONOCYTES % (AUTO) 8.5 %; NEUTROPHILS # (AUTO) 3.8 10^3/uL (1.5-6.6); NEUTROPHILS % (AUTO) 80.5 %; PLT - PLATELET COUNT 150 10^3/uL (130-450); RED BLOOD COUNT 4.48 10^6/uL (4.70-6.10); RED CELL DISTRIBUTION WIDTH 12.7 % (12.0-15.0); WHITE BLOOD COUNT 4.7 x10^3/uL (4.8-10.8)
[2021-06-19 09:43] LABS: BUN - BLOOD UREA NITROGEN 10 mg/dL (6-20); CALCIUM 9.1 mg/dL (8.5-10.3); CARBON DIOXIDE - CO2 25 mmol/L (21-32); CHLORIDE 95 mmol/L (101-111); CREATININE 0.8 mg/dL (0.6-1.2); ETOH - ETHANOL < 5.0 mg/dL; GFR - MDRD 96 (>89); GLUCOSE 110 mg/dL (70-100); POTASSIUM 3.2 mmol/L (3.5-5.0); SODIUM 132 mmol/L (135-145)
[2021-06-19 09:50] VITALS: BP 121/83
[2021-06-19] MEDS ORDERED: IBUPROFEN 600 MG TABLET PO STA (10:08)
== END 2021-06-19 14:05 | disposition home or self-care (01) ==
LOC: EDUNIT# → ED 08:54
DX: T68.XXXA Hypothermia, initial encounter (principal); X31.XXXA Exposure to excessive natural cold, initial encounter; F17.200 Nicotine dependence, unspecified, uncomplicated; S00.03XA Contusion of scalp, initial encounter; S20.229A Contusion of unspecified back wall of thorax, initial encounter; Y04.2XXA Assault by strike against or bumped into by another person, initial encounter
CPT/HCPCS: 36415; 70450; 72125; 72128; 72131; 80048; 85025; 96374; 96375; 99282; 99283; 99284; A9270; G0480; J1170; 80320

== ENCOUNTER 2021-06-24 17:51 | Outpatient (CLI) | payer MEDICARE | END 2021-06-24 17:52 | disposition critical access hospital (66) | LOC: EMS 17:51 | DX: R53.1 Weakness (principal); M79.10 Myalgia, unspecified site | CPT/HCPCS: A0425; A0429 ==

== ENCOUNTER 2021-06-24 18:10 | Emergency (ER) | payer MEDICARE ==
[2021-06-24 18:36] LABS: CALCIUM 8.9 mg/dL (8.5-10.3); CREATININE 0.9 mg/dL (0.6-1.2); POTASSIUM 3.5 mmol/L (3.5-5.0)
[2021-06-24 18:40] LABS: BASOPHILS # (AUTO) 0.1 10^3/uL (0.0-0.1); EOSINOPHILS # (AUTO) 0.1 10^3/uL (0.0-0.7); EOSINOPHILS % (AUTO) 1.6 %; HCT - HEMATOCRIT 38.3 % (42.0-52.0); HGB - HEMOGLOBIN 13.4 g/dL (14.0-18.0); LYMPHOCYTES # (AUTO) 2.1 10^3/uL (1.5-3.5); LYMPHOCYTES % (AUTO) 41.6 %; MEAN CORPUSCULAR HEMOGLOBIN 33.2 pg (27.0-31.0); MEAN CORPUSCULAR VOLUME 94.8 fL (80.0-94.0); MEAN PLATELET VOLUME 9.1 fL (7.4-11.4); MONOCYTES # (AUTO) 0.4 10^3/uL (0.0-1.0); MONOCYTES % (AUTO) 8.4 %; NEUTROPHILS # (AUTO) 2.4 10^3/uL (1.5-6.6); NEUTROPHILS % (AUTO) 47.2 %; PLT - PLATELET COUNT 183 10^3/uL (130-450); RED BLOOD COUNT 4.04 10^6/uL (4.70-6.10); RED CELL DISTRIBUTION WIDTH 12.3 % (12.0-15.0)
[2021-06-24 18:42] LABS: SLIDE REVIEW? Indicated
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
[2021-06-24 19:08] LABS: PLATELET ESTIMATE, MANUAL NORMAL (130-450,000) (NORMAL); PLATELET MORPHOLOGY NORMAL APPEARANCE (NORMAL); RBC MORPHOLOGY (MULTIPLE) NORMAL APPEARANCE (NORMAL)
[2021-06-24 19:09] LABS: DIFFERENTIAL COMMENT MANUAL=AUTO DIFF
[2021-06-24] MEDS ORDERED: ACETAMINOPHEN 325 MG TABLET PO STA (19:43)
[2021-06-24] MEDS ORDERED: IBUPROFEN 600 MG TABLET PO STA (21:14)
[2021-06-24 22:01] LABS: ACETAMINOPHEN 12 ug/mL (10-30); ALBUMIN 3.4 g/dL (3.2-5.5); ALBUMIN/GLOBULIN RATIO 0.9 (1.0-2.2); ALKALINE PHOSPHATASE 72 IU/L (42-121); ALT ALANINE AMINOTRANSFERASE 11 IU/L (10-60); AST ASPARTATE AMINOTRANSFERASE 20 IU/L (10-42); BILIRUBIN,TOTAL 0.6 mg/dL (0.2-1.0); BUN - BLOOD UREA NITROGEN 11 mg/dL (6-20); CALCIUM 8.7 mg/dL (8.5-10.3); CARBON DIOXIDE - CO2 23 mmol/L (21-32); CHLORIDE 95 mmol/L (101-111); CREATININE 0.9 mg/dL (0.6-1.2); GFR - MDRD 84 (>89); GLUCOSE 83 mg/dL (70-100); LIPASE 45 U/L (22-51); POTASSIUM 3.3 mmol/L (3.5-5.0); SALICYLATE < 6.0 mg/dL; SODIUM 129 mmol/L (135-145)
[2021-06-24 22:32] LABS: MUDS CUTOFF CONCENTRATIONS CUTOFF CONC BELOW:
[2021-06-24 22:34] LABS: BILIRUBIN,URINE NEGATIVE (NEGATIVE); CLARITY,URINE CLEAR (CLEAR); GLUCOSE, URINE (UA) NEGATIVE (NEGATIVE); KETONES,URINE (UA) NEGATIVE (NEGATIVE); LEUKOCYTE ESTERASE, URINE NEGATIVE (NEGATIVE); NITRITE,URINE NEGATIVE (NEGATIVE); OCCULT BLOOD,URINE NEGATIVE (NEGATIVE); PROTEIN,URINE NEGATIVE (NEGATIVE); UROBILINOGEN,URINE 0.2 (NORMAL) E.U./dL (NORMAL)
[2021-06-24 22:44] LABS: AMPHETAMINE SCREEN,URINE NEGATIVE (NEGATIVE); BARBITURATE SCREEN,UR NEGATIVE (NEGATIVE); BENZODIAZEPINES SCREEN, URINE NEGATIVE (NEGATIVE); COCAINE SCREEN URINE NEGATIVE (NEGATIVE); METHADONE SCREEN, URINE NEGATIVE (NEGATIVE); METHAMPHETAMINES SCREEN, URINE NEGATIVE (NEGATIVE); OPIATE SCREEN, URINE NEGATIVE (NEGATIVE); OXYCODONE SCREEN, URINE NEGATIVE (NEGATIVE); PROPOXYPHENE SCREEN, URINE NEGATIVE (NEGATIVE); THC CANNABINOID SCREEN, URINE NEGATIVE (NEGATIVE); TRICYCLIC ANTIDEPRESSANT,URINE NEGATIVE (NEGATIVE)
[2021-06-25] MEDS ORDERED: ACETAMINOPHEN 325 MG TABLET PO STA (11:17)
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
[2021-06-25 12:01] VITALS: BP 140/80
== END 2021-06-25 12:00 | disposition home or self-care (01) ==
LOC: EDUNIT# → ED 18:10
DX: R53.1 Weakness (principal); F10.129 Alcohol abuse with intoxication, unspecified; Y90.6 Blood alcohol level of 120-199 mg/100 ml; Z59.02 Unsheltered homelessness; F17.200 Nicotine dependence, unspecified, uncomplicated
CPT/HCPCS: 36415; 80048; 80053; 80306; 80307; 81003; 83690; 84443; 85025; 99282; 99283; A9270; G0480; 80320; 80329; 81001; 87086

== ENCOUNTER 2021-06-26 12:45 | Outpatient (CLI) | payer MEDICARE | END 2021-06-26 12:46 | disposition critical access hospital (66) | LOC: EMS 12:45 | DX: M54.9 Dorsalgia, unspecified (principal) | CPT/HCPCS: A0425; A0429 ==

== ENCOUNTER 2021-06-26 13:02 | Emergency (ER) | payer MEDICARE ==
[2021-06-26 13:09] VITALS: BP 150/100
--- NOTE | 2021-06-26 13:57 | ED Physician Documentation ---
History of Present Illness - Stated complaint Stated Complaint: BACK PAIN - Chief complaint Chief Complaint: Back Pain - History obtained from History obtained from: Patient - History of Present Illness Timing: Chronic - Additonal information Additional information: 70-year-old male has become homeless presents to the emerge department complaining of low back pain. He has chronic back pain and he is complaining of pain radiating to both of his legs. He indicates that he has not had a place to sit or lay down for the past several days and he has not figured out how to be homeless. He has been referred to the [facility] the [facility] he has been there previously he has not completed registration for housing. He has been helped by director social numerous times. He states that he became homeless when his son was using drugs in their trailer [place] and they were kicked out of the trailer park. He states that 2 weeks ago his walked out and he has not seen her since. Review of Systems Constitutional: denies: Fever Nose: denies: Rhinorrhea / runny nose, Congestion Throat: denies: Dental pain / toothache Cardiac: denies: Chest pain / pressure Respiratory: reports: Cough (usual and unchanged) : denies: Dysuria Musculoskeletal: reports: Back pain, Extremity pain. denies: Neck pain Neurologic: denies: Generalized weakness, Focal weakness, Difficulty speaking PD PAST MEDICAL HISTORY - Past Medical History Cardiovascular: None Respiratory: None Neuro: None Endocrine/Autoimmune: None GI: GI bleed Musculoskeletal: Osteoarthritis, Chronic back pain - Past Surgical History Past Surgical History: No Ortho: Other - Present Medications Home Medications: Ambulatory Orders Medication Instructions Recorded Confirmed Ibuprofen [Motrin] 600 mg PO Q8H PRN #20 tab 06/25/21 - Allergies Allergies/Adverse Reactions: Allergies Allergy/AdvReac Type Severity Reaction Status Date / Time No Known Drug Allergies Allergy Verified 06/26/21 13:06 - Social History Does the pt smoke?: Yes Smoking Status: Current every day smoker Does the pt drink ETOH?: Yes Does the pt have substance abuse?: No - Immunizations Immunizations are current?: No - POLST Patient has POLST: No PD ED PE NORMAL - Vitals Vital signs reviewed: Yes (hypertensive ) - General General: Alert and oriented X 3, No acute distress, Well developed/nourished, Other (Disheveled 70-year-old male with dry mucous membranes.) - HEENT HEENT: Atraumatic, PERRL, EOMI - Neck Neck: Supple, no meningeal sign, No bony TTP - Cardiac Cardiac: RRR, No murmur - Respiratory Respiratory: No respiratory distress, Clear bilaterally - Abdomen Abdomen: Normal bowel sounds, Soft, Non tender, Non distended, No organomegaly - Back Back: No CVA TTP, No spinal TTP, Other (point tenderness to the paraspinous muscles on the right side extending into the sciatic notch) - Derm Derm: Normal color, Warm and dry, No rash - Extremities Extremities: No deformity, No edema - Neuro Neuro: Alert and oriented X 3, outboard motorboat rigger 2-12 intact, No motor deficit, No sensory deficit, Normal speech Eye Opening: Spontaneous Motor: Obeys Commands Verbal: Oriented GCS Score: 15 - Psych Psych: Normal mood, Normal affect Results - Vitals Vitals: Vital Signs - 24 hr 06/26/21 13:06 Temperature 36.5 C Heart Rate 80 Respiratory 16 Rate Blood Pressure 150/100 H O2 Saturation 99 Oxygen O2 Source Room air PD MEDICAL DECISION MAKING - ED course Complexity details: reviewed old records, re-evaluated patient, considered differential, d/w patient ED course: 70-year-old homeless male who has been exposed and has had a difficult time learning how to be homeless shows up to the emergency department for the fifth time in 10 days. He has been given resources and has not followed up with these. He has chronic back pain and he is treated here in the emergency department with 10 mg of dexamethasone and 60 mg of Toradol shortly after receiving this he uses a walker to go down the [place] to by chips out of the vending machine. He felt improved. He was given a warm cup of soup and a sandwich and directions to the [facility]. Is encouraged to seek housing by registration through the [facility]. Departure - Departure Disposition: 01 Home, Self Care Clinical Impression: Homeless single person, Back pain of lumbar region with sciatica Condition: Stable Instructions: ED Spasm Back No Trauma, ED Sciatica Follow-Up: [facility] [Provider Group] Comments: Ramez, today you have been diagnosed with sciatica and we have given you some dexamethasone and some Toradol as well. These are medicines to help with the inflammation associated with this and the expectation is you will have some improvement in your back pain today and tomorrow. It is important to have somewhere to rest and my recommendation is to go to the [facility] this afternoon and establish a place to stay. Follow-up at the [facility] to register for housing. Discharge Date/Time: 06/26/21 16:03
[2021-06-26] MEDS ORDERED: DEXAMETHASONE 10 MG/ML VIAL PO STA (14:22)
[2021-06-26] MEDS ORDERED: CHERRY SYRUP 10 ML UDC PO ONE (14:22)
[2021-06-26] MEDS ORDERED: KETOROLAC 60 MG/2 ML VIAL IM STA (14:22)
== END 2021-06-26 16:03 | disposition home or self-care (01) ==
LOC: EDUNIT# → ED 13:02
DX: M54.42 Lumbago with sciatica, left side (principal); M54.41 Lumbago with sciatica, right side; F17.200 Nicotine dependence, unspecified, uncomplicated; Z59.00 Homelessness unspecified
CPT/HCPCS: 96372; 99283; A9270

== ENCOUNTER 2021-06-28 18:56 | Outpatient (CLI) | payer MEDICARE | END 2021-06-28 18:57 | disposition critical access hospital (66) | LOC: EMS 18:56 | DX: R53.1 Weakness (principal); R44.8 Other symptoms and signs involving general sensations and perceptions | CPT/HCPCS: A0425; A0429 ==

== ENCOUNTER 2021-06-28 18:58 | Inpatient (IN) | payer MEDICARE ==
[2021-06-28] MEDS ORDERED: MELOXICAM 7.5 MG TABLET PO STA (19:15)
--- NOTE | 2021-06-28 19:24 | ED Physician Documentation ---
PD HPI BACK PAIN - Stated complaint Stated Complaint: BACK PAIN - Chief complaint Chief Complaint: Back Pain - History obtained from History obtained from: Patient - History of Present Illness Pain level max: 9 Pain level now: 9 Location: Lower, Right, Left Quality: Pain, Similar to prior episodes. No: Spasm, Sharp, Tearing, Aching, Throbbing, Dull Associated symptoms: No: Fever, Weakness, Numbness, Incontinent of urine, Unable to urinate, Hematuria, Incontinent of stool Improves with: Rest Worsened by: Movement - Additional information Additional information: 70-year-old homeless male who presents to the emergency department complaining of back pain. He states this is chronic and unchanged. He uses a walker. He states he was going across the street to "am/pm" when he he states his pain is a 9 out of 10. This is no different than his usual pain. Nonradiating. Worse with movement, better with rest fell and landed on his buttocks. Patient states that he is having difficulty standing and getting up. He is also "felt foggy" today. Review of Systems Ten Systems: 10 systems reviewed and negative Constitutional: denies: Fever, Chills Nose: denies: Rhinorrhea / runny nose, Congestion Respiratory: denies: Cough GI: denies: Abdominal Pain, Vomiting, Diarrhea Skin: denies: Rash Musculoskeletal: denies: Neck pain Neurologic: denies: Focal weakness, Numbness, Headache PD PAST MEDICAL HISTORY - Past Medical History Cardiovascular: None Respiratory: None Neuro: None Endocrine/Autoimmune: None GI: GI bleed Musculoskeletal: Osteoarthritis, Chronic back pain - Past Surgical History Past Surgical History: No Ortho: Other - Present Medications Home Medications: Ambulatory Orders Medication Instructions Recorded Confirmed Ibuprofen [Motrin] 600 mg PO Q8H PRN #20 tab 06/25/21 - Allergies Allergies/Adverse Reactions: Allergies Allergy/AdvReac Type Severity Reaction Status Date / Time No Known Drug Allergies Allergy Verified 06/28/21 19:06 - Social History Does the pt smoke?: Yes Smoking Status: Current every day smoker Does the pt drink ETOH?: Yes Does the pt have substance abuse?: No - Immunizations Immunizations are current?: No - POLST Patient has POLST: No PD ED PE NORMAL - Vitals Vital signs reviewed: Yes - General General: Alert and oriented X 3, No acute distress, Well developed/nourished - HEENT HEENT: PERRL, Other (Dry lips and tongue) - Neck Neck: Supple, no meningeal sign - Cardiac Cardiac: RRR, Strong equal pulses - Respiratory Respiratory: No respiratory distress, Clear bilaterally - Abdomen Abdomen: Soft, Non tender, Non distended - Back Back: No spinal TTP, Other (No midline tenderness to palpation. No step-off or deformity) - Derm Derm: Warm and dry - Extremities Extremities: No edema, No calf tenderness / cord - Neuro Neuro: Alert and oriented X 3, regulator assembler 2-12 intact, No motor deficit, No sensory deficit, Other (Normal bilateral lower extremity patellar and ankle jerk reflexes. Normal great toe extension bilaterally. no saddle anesthesia) - Psych Psych: Normal mood, Normal affect Results - Vitals Vitals: Vital Signs - 24 hr 06/28/21 19:06 Temperature 36.4 C L Heart Rate 96 Respiratory 18 Rate Blood Pressure 114/81 H O2 Saturation 98 Oxygen O2 Source Room air - Labs Labs: Laboratory Tests 06/28/21 06/28/21 06/28/21 19:29 19:29 19:29 WBC 8.1 RBC 4.10 L Hgb 13.6 L Hct 37.9 L MCV 92.4 MCH 33.2 H MCHC 35.9 RDW 12.0 Plt Count 170 MPV 9.5 Neut # (Auto) 6.1 Lymph # (Auto) 1.2 L Callaway # (Auto) 0.7 Eos # (Auto) 0.0 Baso # (Auto) 0.0 Absolute Nucleated RBC 0.00 Nucleated RBC % 0.0 Sodium 117 L* Potassium 3.9 Chloride 83 L Carbon Dioxide 22 Anion Gap 12.0 BUN 15 Creatinine 0.9 Estimated GFR (MDRD) 84 L Glucose 82 Calcium 9.0 Total Bilirubin 0.8 AST 32 ALT 15 Alkaline Phosphatase 72 Total Protein 7.7 Albumin 4.1 Globulin 3.6 Albumin/Globulin Ratio 1.1 Nasal Adenovirus (PCR) Nasal B. parapertussis DNA (PCR) Nasal Coronavir 229E PCR Nasal Coronavir HKU1 PCR Nasal Coronavir NL63 PCR Nasal Coronavir OC43 PCR Nasal Enterovir/Rhinovir PCR Nasal Influenza B PCR Nasal Influenza A PCR Nasal Parainfluen 1 PCR Nasal Parainfluen 2 PCR Nasal Parainfluen 3 PCR Nasal Parainfluen 4 PCR Nasal RSV (PCR) Nasal B.pertussis DNA PCR Nasal C.pneumoniae (PCR) Niranjan Human Metapneumo PCR Nasal M.pneumoniae (PCR) Nasal SARS-CoV-2 (PCR) Ethyl Alcohol 16.6 06/28/21 20:28 WBC RBC Hgb Hct MCV MCH MCHC RDW Plt Count MPV Neut # (Auto) Lymph # (Auto) Callaway # (Auto) Eos # (Auto) Baso # (Auto) Absolute Nucleated RBC Nucleated RBC % Sodium Potassium Chloride Carbon Dioxide Anion Gap BUN Creatinine Estimated GFR (MDRD) Glucose Calcium Total Bilirubin AST ALT Alkaline Phosphatase Total Protein Albumin Globulin Albumin/Globulin Ratio Nasal Adenovirus (PCR) NOT DETECTED Nasal B. parapertussis DNA (PCR) NOT DETECTED Nasal Coronavir 229E PCR NOT DETECTED Nasal Coronavir HKU1 PCR NOT DETECTED Nasal Coronavir NL63 PCR NOT DETECTED Nasal Coronavir OC43 PCR NOT DETECTED Nasal Enterovir/Rhinovir PCR NOT DETECTED Nasal Influenza B PCR NOT DETECTED Nasal Influenza A PCR NOT DETECTED Nasal Parainfluen 1 PCR NOT DETECTED Nasal Parainfluen 2 PCR NOT DETECTED Nasal Parainfluen 3 PCR NOT DETECTED Nasal Parainfluen 4 PCR NOT DETECTED Nasal RSV (PCR) NOT DETECTED Nasal B.pertussis DNA PCR NOT DETECTED Nasal C.pneumoniae (PCR) NOT DETECTED Niranjan Human Metapneumo PCR NOT DETECTED Nasal M.pneumoniae (PCR) NOT DETECTED Nasal SARS-CoV-2 (PCR) NOT DETECTED Ethyl Alcohol PD MEDICAL DECISION MAKING - ED course Complexity details: reviewed results, re-evaluated patient, considered differential, d/w patient ED course: Patient found to have significant hyponatremia. This is acute. No indication for imaging of the spine at this time. Back pain is chronic and unchanged. Neurologically intact. The sodium levels were corrected slowly. He will be placed in the hospital for further care. Discussed the case with Dr. Portillo, hospitalist who accepts. Patient admitted. This document was made in part using voice recognition software. While efforts are made to proofread this document, sound alike and grammatical errors may occur. Departure - Departure Disposition: 66 [facility] DC/Xfer Clinical Impression: Hyponatremia Chronic back pain Qualifiers: Back pain location: low back pain Back pain laterality: bilateral Sciatica presence: without sciatica Qualified Code(s): M54.50 - Low back pain, unspecified Condition: Stable Discharge Date/Time: 06/28/21 21:06
[2021-06-28 19:44] LABS: BASOPHILS % (AUTO) 0.1 %; EOSINOPHILS % (AUTO) 0.1 %; HCT - HEMATOCRIT 37.9 % (42.0-52.0); HGB - HEMOGLOBIN 13.6 g/dL (14.0-18.0); LYMPHOCYTES # (AUTO) 1.2 10^3/uL (1.5-3.5); LYMPHOCYTES % (AUTO) 15.3 %; MEAN CORPUSCULAR HEMOGLOBIN 33.2 pg (27.0-31.0); MEAN CORPUSCULAR HGB CONC 35.9 g/dL (32.0-36.0); MEAN CORPUSCULAR VOLUME 92.4 fL (80.0-94.0); MEAN PLATELET VOLUME 9.5 fL (7.4-11.4); MONOCYTES # (AUTO) 0.7 10^3/uL (0.0-1.0); MONOCYTES % (AUTO) 8.4 %; NEUTROPHILS # (AUTO) 6.1 10^3/uL (1.5-6.6); NEUTROPHILS % (AUTO) 75.6 %; PLT - PLATELET COUNT 170 10^3/uL (130-450); WHITE BLOOD COUNT 8.1 x10^3/uL (4.8-10.8)
[2021-06-28 20:09] LABS: ALBUMIN 4.1 g/dL (3.2-5.5); ALBUMIN/GLOBULIN RATIO 1.1 (1.0-2.2); BILIRUBIN,TOTAL 0.8 mg/dL (0.2-1.0); CREATININE 0.9 mg/dL (0.6-1.2); POTASSIUM 3.9 mmol/L (3.5-5.0); TOTAL PROTEIN 7.7 g/dL (6.7-8.2)
[2021-06-28] MEDS ORDERED: SODIUM CHLORIDE 0.9% 1,000 ML IV STA (20:17)
[2021-06-28] MEDS ORDERED: ONDANSETRON 4 MG/2 ML VIAL IVP PRN (20:31)
[2021-06-28] MEDS ORDERED: SODIUM CHLORIDE 0.9% 500 ML IV STA (20:31)
[2021-06-28] MEDS ORDERED: SODIUM CHLORIDE FLUSH 0.9% 10 ML SYRINGE IVP PRN (20:31)
--- NOTE | 2021-06-28 20:40 | HISTORY & PHYSICAL EXAMINATION ---
Chief Complaint - Chief Complaint Chief Complaint: back pain History of Present Illness - Admitted From Admitted From:: [facility] ED - History Obtained From Records Reviewed: yes History obtained from: patient and ED physician - History of Present Illness HPI Comment/Other: Patient is a 70-year-old male who is well-known to the emergency department who was brought in by EMS after falling on his bottom a couple of times and having a hard time getting up. He is homeless. He was trying to get to a convenience store using a walker when he fell and was unable to get up. EMS was called who brought him to the ED for evaluation. He complains of 9 out of 10 back pain. It is nonradiating and not different from his previous back pain. He reports chronic back pain. In the ED work-up included BMP which showed a sodium level of 117. As a result he was presented for admission for further treatment. At bedside he appears to be resting comfortably. He appears disheveled. He denies chest pain, dyspnea, abdominal pain. He reported nausea but no vomiting. He denied fever or chills History - Past Medical History Cardiovascular: reports: None Respiratory: reports: None Neuro: reports: None Endocrine/Autoimmune: reports: None GI: reports: GI bleed Musculoskeletal: reports: Osteoarthritis, Chronic back pain MRSA Hx?: No - Past Surgical History Ortho: reports: Other Other past surgical history: Patient denied any surgical history. - Family & Social History Family History Comment/Other: None germane to his presentation. Social History Notes: He is homeless. He was born on [facility]. His father was in the [place]. He reports drinking occasionally and smoking cigarettes but did not specify how much. He denied recreational substance use. - POLST Patient has POLST: No POLST Status: Full Code Meds/Allgy - Home Medications Home Medications: Ambulatory Orders Medication Instructions Recorded Confirmed Ibuprofen [Motrin] 600 mg PO Q8H PRN #20 tab 06/25/21 - Allergies Allergies/Adverse Reactions: Allergies Allergy/AdvReac Type Severity Reaction Status Date / Time No Known Drug Allergies Allergy Verified 06/28/21 19:06 Review of Systems - Constitutional Constitutional: reports: Fatigue, Weakness. denies: Fever, Chills - Eyes Eyes: denies: Pain - Ears, Nose & Throat Ears, Nose & Throat: denies: Sore throat - Cardiovascular Cariovascular: denies: Chest pain, Edema - Respiratory Respiratory: reports: Cough. denies: Sputum production, Wheezing, SOB at rest, SOB with exertion - Gastrointestinal Gastrointestinal: reports: Nausea, Reflux/heartburn. denies: Abdominal pain, Abdominal distention, Vomiting - Genitourinary Genitourinary: denies: Dysuria, Frequency, Urgency, Hematuria - Musculoskeletal Musculoskeletal: reports: Back pain. denies: Muscle pain - Integumentary Integumentary: reports: Lesions (blotches on arms bilaterally). denies: Pruritis - Neurological Neurological: reports: General weakness. denies: Focal weakness, Headache, Dizziness - Psychiatric Psychiatric: denies: Depression, Anxiety - Endocrine Endocrine: denies: Polyuria, Polydypsia - Hematologic/Lymphatic Hematologic/Lymphatic: denies: Anemia, Bruising, Petechiae Prior Level of Functionality: He is independent of activities of daily living. He is homeless. Exam - Vital Signs Vital Signs: Vital Signs x48h Temp Pulse Resp BP Pulse Ox 06/28/21 20:36 95 16 131/81 H 98 06/28/21 19:06 36.4 C L 96 18 114/81 H 98 - Physical Exam General Appearance: positive: Alert, Mild distress (Back pain), Other (Disheveled) Eyes Bilateral: positive: PERRL, EOMI ENT: positive: Dry mucous membranes Neck: positive: No JVD, Trachea midline Respiratory: positive: Chest non-tender, No respiratory distress, Breath sounds nml. negative: Wheezes, Rales, Rhonchi Cardiovascular: positive: Regular rate & rhythm, No murmur Abdomen: positive: Non-tender, No distention. negative: Guarding, Rebound Back: positive: Nml inspection Skin: positive: Color nml, Warm, Dry, Other (blotches on arms bilaterally) Neurologic/Psychiatric: positive: Oriented x3, Mood/affect nml Conclusion/Plan - Problem List (1) Hyponatremia Conclusion/Plan: Likely hypovolemic hyponatremia. Patient was given a bolus of 500 mL of normal saline in the ED. IV hydration was continued with normal saline at 150 mL/h. We will check sodium every 6 hours and adjust fluid rate accordingly. (2) Chronic back pain Conclusion/Plan: Tylenol ordered every 4 hours as needed for back pain. Qualifiers: Back pain location: low back pain Back pain laterality: bilateral Sciatica presence: without sciatica Qualified Code(s): M54.50 - Low back pain, unspecified; G89.29 - Other chronic pain - Lab Results Fish Bones: 06/28/21 19:29 06/28/21 19:29 Core Measures - Anticipated LOS I expect patient to be DC'd or transferred within 96 hours.: Yes - DVT/VTE - Prophylaxis VTE/DVT Device ordered at admit?: Yes
[2021-06-28 21:27] LABS: B. PARAPERTUSSIS- RESP PCR PAN NOT DETECTED; B. PERTUSSIS- RESP PCR PANEL NOT DETECTED; C. PNEUMONIAE- RESP PCR PANEL NOT DETECTED; CORONAVIRUS 229E-RESP PCR NOT DETECTED; CORONAVIRUS HKU1-RESP PCR NOT DETECTED; CORONAVIRUS NL63-RESP PCR NOT DETECTED; CORONAVIRUS OC43-RESP PCR NOT DETECTED; HUMAN METAPNEUMOVIRUS NOT DETECTED; INFLUENZA A- RESP PCR PANEL NOT DETECTED; INFLUENZA B - RESP PCR PANEL NOT DETECTED; M. PNEUMONIAE- RESP PCR PANEL NOT DETECTED; PARAINFLUENZA VIRUS 1 NOT DETECTED; PARAINFLUENZA VIRUS 2 NOT DETECTED; PARAINFLUENZA VIRUS 3 NOT DETECTED; PARAINFLUENZA VIRUS 4 NOT DETECTED; RHINOVIRUS/ENTEROVIRUS NOT DETECTED; RSV- RESP PCR PANEL NOT DETECTED; SARS-CoV-2 -RESP PCR PANEL NOT DETECTED
[2021-06-28 21:43] LABS: BILIRUBIN,URINE NEGATIVE (NEGATIVE); GLUCOSE, URINE (UA) NEGATIVE (NEGATIVE); KETONES,URINE (UA) TRACE mg/dL (NEGATIVE); LEUKOCYTE ESTERASE, URINE NEGATIVE (NEGATIVE); NITRITE,URINE NEGATIVE (NEGATIVE); OCCULT BLOOD,URINE NEGATIVE (NEGATIVE); PROTEIN,URINE NEGATIVE (NEGATIVE); UROBILINOGEN,URINE 0.2 (NORMAL) E.U./dL (NORMAL)
[2021-06-28 21:44] LABS: CLARITY,URINE CLEAR (CLEAR)
[2021-06-28] MEDS: SODIUM CHLORIDE 0.9% 1,000 ML IV SCH (22:00)
[2021-06-28] MEDS: ACETAMINOPHEN 325 MG TABLET PO PRN (22:37)
[2021-06-28] MEDS: CALCIUM CARBONATE CHEW 500 MG TABLET PO SCH (22:37)
[2021-06-28 23:31] LABS: CALCIUM 8.3 mg/dL (8.5-10.3); POTASSIUM 3.8 mmol/L (3.5-5.0)
[2021-06-29] MEDS ORDERED: SODIUM CHLORIDE 0.9% 1,000 ML IV ONE (00:28)
[2021-06-29] MEDS: SODIUM CHLORIDE FLUSH 0.9% 10 ML SYRINGE IVP SCH ×3 (02:51→17:09)
[2021-06-29] MEDS: SODIUM CHLORIDE 0.9% 1,000 ML IV SCH ×3 (04:42→17:58)
[2021-06-29 05:38] LABS: BASOPHILS % (AUTO) 0.5 %; EOSINOPHILS # (AUTO) 0.1 10^3/uL (0.0-0.7); EOSINOPHILS % (AUTO) 1.4 %; HCT - HEMATOCRIT 33.4 % (42.0-52.0); HGB - HEMOGLOBIN 11.8 g/dL (14.0-18.0); LYMPHOCYTES # (AUTO) 1.2 10^3/uL (1.5-3.5); LYMPHOCYTES % (AUTO) 29.3 %; MEAN CORPUSCULAR HEMOGLOBIN 32.7 pg (27.0-31.0); MEAN CORPUSCULAR HGB CONC 35.3 g/dL (32.0-36.0); MEAN CORPUSCULAR VOLUME 92.5 fL (80.0-94.0); MEAN PLATELET VOLUME 9.2 fL (7.4-11.4); MONOCYTES # (AUTO) 0.4 10^3/uL (0.0-1.0); MONOCYTES % (AUTO) 9.5 %; NEUTROPHILS # (AUTO) 2.5 10^3/uL (1.5-6.6); NEUTROPHILS % (AUTO) 59.1 %; PLT - PLATELET COUNT 139 10^3/uL (130-450); RED BLOOD COUNT 3.61 10^6/uL (4.70-6.10); WHITE BLOOD COUNT 4.2 x10^3/uL (4.8-10.8)
[2021-06-29 05:48] LABS: POTASSIUM 4.1 mmol/L (3.5-5.0)
[2021-06-29] MEDS: CALCIUM CARBONATE CHEW 500 MG TABLET PO SCH ×3 (08:48→21:07)
[2021-06-29] MEDS: ACETAMINOPHEN 325 MG TABLET PO PRN ×3 (09:09→21:07)
[2021-06-29 11:26] LABS: CALCIUM 8.1 mg/dL (8.5-10.3); POTASSIUM 3.9 mmol/L (3.5-5.0)
--- NOTE | 2021-06-29 11:44 | PHARMACY PROGRESS NOTE ---
- Best Possible Medication History Admit Date and Time: 06/28/212030 Processed by: Pharmacy Medication History completed: Yes Patient Interview: Completed Patient reports he does not take any medications As the person ultimately responsible for medication therapy, providers are able to order a medication from an existing home medication list in [facility] via the "Reconcile Routine" prior to Confirmation of that medication by account support specialist. Such practice is discouraged except when the physician, in their clinical judgment, deems that a medical need exists for a medication without regard to previous use.
--- NOTE | 2021-06-29 13:05 | PROVIDER PROGRESS NOTE ---
Progress Note June 29, 2021 12:59 PM He presented to the emergency room after falling. It was a mechanical fall. He was outside a convenience store trying to get in when he fell. Afterwards he was unable to stand so EMS was called. His main complaint is back pain. He says that it is mainly lower thoracic and L-spine. Nonradiating. More prominent on the left side than the right side. He has been present since 2018 in the electronic medical record. It is a chronic condition for him. On June 18 when he was ER visits, after a fall, resulted in a CT of the C-spine, T-spine, and L-spine. He has moderate to severe degenerative disc disease but no fractures, no metastatic disease, no infection seen. What we admitted him for with hyponatremia. His sodium was 117. He has history of alcohol abuse. This morning his sodium was 122. By 11 in the morning is 124. He is on normal saline at 150 cc an hour. Medications: Tylenol, Tums, Zofran, MiraLAX, try steve vitamin, normal saline Vital signs: Temperature 36.6, heart rate 89, blood pressure 124/68, respirations 18, 96% on room air General: Disheveled, older appearing than stated age, sitting up in bed. Using spoon and fork to feed himself scrambled eggs, watson, a bowl of oatmeal. No dysphagia, no dysarthria. Lungs are clear. No increased respiratory effort Regular rate and rhythm Abdomen benign Extremities without edema, bowlegged knees 9:15 PM sodium 118 5:30 AM sodium 122 11:08 AM sodium 124 White cell count down to 4.2. Hemoglobin 11.8. Platelets 139. Assessment/plan: 1. Hyponatremia most likely due to hypovolemic hyponatremia. He is responding to normal saline at 150 cc an hour. Sodium rising at the appropriate rate. We will continue. Hopefully will be able to discharge tomorrow. 2. Chronic back pain. CT imaging done June 18. He does not feel like Tylenol is helping. We will add ibuprofen 600 every 6 hours as needed. 3. Chronic alcohol abuse. No alcohol withdrawal at this time.
[2021-06-29] MEDS: IBUPROFEN 600 MG TABLET PO SCH ×2 (13:16→18:13)
[2021-06-29] MEDS: PRENATAL VITAMIN TABLET PO SCH (16:02)
[2021-06-29 17:32] LABS: CREATININE 1.1 mg/dL (0.6-1.2); POTASSIUM 4.1 mmol/L (3.5-5.0)
[2021-06-30] MEDS: IBUPROFEN 600 MG TABLET PO SCH ×3 (00:08→11:22)
[2021-06-30] MEDS: SODIUM CHLORIDE 0.9% 1,000 ML IV SCH ×2 (00:09→07:29)
[2021-06-30] MEDS: SODIUM CHLORIDE FLUSH 0.9% 10 ML SYRINGE IVP SCH ×2 (00:20→07:31)
[2021-06-30 05:26] LABS: BASOPHILS % (AUTO) 0.5 %; EOSINOPHILS % (AUTO) 0.9 %; HCT - HEMATOCRIT 33.9 % (42.0-52.0); HGB - HEMOGLOBIN 11.7 g/dL (14.0-18.0); LYMPHOCYTES % (AUTO) 22.8 %; MEAN CORPUSCULAR HEMOGLOBIN 33.1 pg (27.0-31.0); MEAN CORPUSCULAR HGB CONC 34.5 g/dL (32.0-36.0); MEAN PLATELET VOLUME 9.2 fL (7.4-11.4); MONOCYTES # (AUTO) 0.4 10^3/uL (0.0-1.0); MONOCYTES % (AUTO) 9.1 %; NEUTROPHILS # (AUTO) 2.9 10^3/uL (1.5-6.6); NEUTROPHILS % (AUTO) 66.2 %; PLT - PLATELET COUNT 141 10^3/uL (130-450); RED BLOOD COUNT 3.53 10^6/uL (4.70-6.10); RED CELL DISTRIBUTION WIDTH 12.3 % (12.0-15.0); WHITE BLOOD COUNT 4.3 x10^3/uL (4.8-10.8)
[2021-06-30 05:32] LABS: CALCIUM 7.9 mg/dL (8.5-10.3); POTASSIUM 3.9 mmol/L (3.5-5.0)
[2021-06-30] MEDS: CALCIUM CARBONATE CHEW 500 MG TABLET PO SCH (05:32)
[2021-06-30] MEDS: PRENATAL VITAMIN TABLET PO SCH (07:59)
[2021-06-30] MEDS: ACETAMINOPHEN 325 MG TABLET PO PRN (07:59)
[2021-06-30] MEDS ORDERED: polyethylene glycoL 3350 17 GM PACKET PO SCH (09:00)
[2021-06-30 11:21] VITALS: BP 147/94
--- NOTE | 2021-06-30 11:35 | Discharge Plan ---
Discharge Plan Problem Reviewed?: Yes Disposition: Home, Self Care Condition: Stable Diet: Regular Activity Restrictions: Activity as Tolerated Assistance Devices: Walker Health Concerns: You came to our emergency room after being brought in by ambulance because you had fallen in the parking lot/sidewalk as you try to get into a convenience store. The emergency room staff knows you well and you do have a history of falls, and occasional intoxication. You do have problems with balance and most likely need a walker or a cane to walk. Once the ambulance brought you in, the emergency room evaluated you and found to have a low sodium. As such we brought you into the hospital to hydrate you and gave you salt water via a vein in your arm. Normal salt level in your body is 135. You came into the 117. We are discharging you at 129. This kind of problem can be due to lack of good food intake, appropriate water intake, and alcoholism. Plan of Treatment: 1. Please make sure you eat a diet. At least 2 meals a day with a normal amount of salt. 2. Make sure you drink at least 32 to 48 ounces of water a day. 3. Please refrain from any alcohol use whatsoever. Care Goals: We would recommend that you establish yourself with a regular doctor and do regular visits. They may be able to refer you for physical therapy to help you with your balance. Assessment: Patient has a homeless status. He meets regularly with our social scientist and is seen in the emergency room frequently by that office. He has appropriate opportunities for alf, food, and will use those opportunities as needed. He does not know if he will get a regular doctor yet. No Smoking: If you smoke, Please STOP! Call for help.
--- NOTE | 2021-06-30 17:04 | DISCHARGE SUMMARY ---
Discharge Summary Admit Date: 06/28/21 Discharge Date: 06/30/21 Discharging Provider: Vita Pyle MD Primary Care Provider: no PCP Code Status: Attempt Resuscitation Condition at Discharge: Fair Discharge Disposition: 01 Home, Self Care - DIAGNOSES Discharge Diagnoses with Status of Each Condition: 1. Hyponatremia 2. Chronic back pain 3. Homeless status 4. Frequent falls 5. Chronic gait ataxia - HPI History of Present Illness: Patient is a 70-year-old male who is well-known to the emergency department who was brought in by EMS after falling on his bottom a couple of times and having a hard time getting up. He is homeless. He was trying to get to a convenience store using a walker when he fell and was unable to get up. EMS was called who brought him to the ED for evaluation. He complains of 9 out of 10 back pain. It is nonradiating and not different from his previous back pain. He reports ch ronic back pain. In the ED work-up included BMP which showed a sodium level of 117. As a result he was presented for admission for further treatment. At bedside he appears to be resting comfortably. He appears disheveled. He denies chest pain, dyspnea, abdominal pain. He reported nausea but no vomiting. He denied fever or chills - Past Medical History Cardiovascular: reports: None Respiratory: reports: None Neuro: reports: None Endocrine/Autoimmune: reports: None GI: reports: GI bleed Musculoskeletal: reports: Osteoarthritis, Chronic back pain MRSA Hx?: No - Past Surgical History Ortho: reports: Other Other past surgical history: Patient denied any surgical history. - HOSPITAL COURSE Hospital Course: This rufina gentleman presents as a homeless status. He lives with his significant other sometimes in a car, sometimes in a senior living. He is a frequent flyer to our emergency room. There is no significant substance abuse history from what I can tell. Nevertheless he has gait ataxia, uses a walker, and has a history of falls. He has chronic back pain.CT of his C-spine, T-spine, and L-spine was done a few days ago. He does have significant degenerative disc disease and osteoarthritis but no vertebral compression fractures, lytic lesions, or osteomyelitis or epidural abscess. There is no antecedent illness to explain why he became so hyponatremic. He does not describe decreased p.o. intake, diarrhea, etc. He is not on any medications. He is not seen by primary care provider on a regular basis. Does have a history of chronic alcohol abuse. Last alcohol level on June 24 was 177, and alcohol use with this admission is 16.6. So our suspicion is chronic alcohol abuse, gait ataxia due to chronic alcohol use and probable cognitive deficit. We hydrated him with normal saline. He was eating his food up to 100%. He is definitely ataxic as he walks across the room to go to the bathroom. It is also demonstrated when he gets up from the toilet to walk back to bed. But this is his baseline condition. When sodium reached 129, we felt the patient was safe for discharge. Discharge exam had a temperature of 36.6. Heart rate 83. Blood pressure 147/94. Respirations 19 and 99% on room air. He is a 70-year-old man who looks much older than stated age. Disheveled. Low gravelly voice. Definite wide- based ataxic gait walking across the room. 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 Neck has shotty adenopathy. Lungs have coarse upper airway sounds but no tachypnea or respiratory distress. Regular rate and rhythm. Abdomen is benign. Extremities are gaunt, but no edema. He is discharged in stable condition. We are asking him to: 1. Get a primary care provider and establish himself with 1 2. Stop drinking 3. Make sure he stays hydrated with regular water, and a normal salt/diet intake. - ALLERGIES Allergies/Adverse Reactions: Allergies Allergy/AdvReac Type Severity Reaction Status Date / Time No Known Drug Allergies Allergy Verified 06/28/21 19:06 - MEDICATIONS Home Medications: Ambulatory Orders Medication Instructions Recorded Confirmed No Known Home Medications 06/29/21 06/29/21 - LABS Result Diagrams: 06/30/21 05:12 06/30/21 05:12
== END 2021-06-30 13:15 | disposition home or self-care (01) | DRG 641 ==
LOC: EDUNIT# → ED 18:58 → MS2 20:31
PROVIDERS: ADMIT Internal Medicine; ATTEND Specialist
DX: E87.1 Hypo-osmolality and hyponatremia (principal); R27.0 Ataxia, unspecified; Z20.822 Contact with and (suspected) exposure to COVID-19; F17.200 Nicotine dependence, unspecified, uncomplicated; Z59.00 Homelessness unspecified; M47.812 Spondylosis without myelopathy or radiculopathy, cervical region; J32.0 Chronic maxillary sinusitis; G89.29 Other chronic pain; Z91.81 History of falling; F10.10 Alcohol abuse, uncomplicated; F17.210 Nicotine dependence, cigarettes, uncomplicated; M54.50 Low back pain, unspecified; W18.30XA Fall on same level, unspecified, initial encounter; Y92.481 Parking lot as the place of occurrence of the external cause; E86.1 Hypovolemia
CPT/HCPCS: 36415; 70450; 72125; 80048; 80053; 81003; 83690; 85025; 87631; 96372; 99284; 99285; A9270; G0480; 0202U; 80320; 81001; 87086

== ENCOUNTER 2021-06-30 17:30 | Outpatient (CLI) | payer MEDICARE | END 2021-06-30 17:31 | disposition critical access hospital (66) | LOC: EMS 17:30 | DX: M54.9 Dorsalgia, unspecified (principal); G89.29 Other chronic pain | CPT/HCPCS: A0425; A0429 ==

== ENCOUNTER 2021-06-30 17:52 | Emergency (ER) | payer MEDICARE ==
[2021-06-30 18:20] LABS: BASOPHILS % (AUTO) 0.5 %; EOSINOPHILS % (AUTO) 0.4 %; HCT - HEMATOCRIT 41.7 % (42.0-52.0); HGB - HEMOGLOBIN 14.5 g/dL (14.0-18.0); LYMPHOCYTES # (AUTO) 1.2 10^3/uL (1.5-3.5); LYMPHOCYTES % (AUTO) 15.9 %; MEAN CORPUSCULAR HEMOGLOBIN 32.9 pg (27.0-31.0); MEAN CORPUSCULAR HGB CONC 34.8 g/dL (32.0-36.0); MEAN CORPUSCULAR VOLUME 94.6 fL (80.0-94.0); MEAN PLATELET VOLUME 9.5 fL (7.4-11.4); MONOCYTES # (AUTO) 0.7 10^3/uL (0.0-1.0); NEUTROPHILS # (AUTO) 5.5 10^3/uL (1.5-6.6); NEUTROPHILS % (AUTO) 74.1 %; PLT - PLATELET COUNT 159 10^3/uL (130-450); RED BLOOD COUNT 4.41 10^6/uL (4.70-6.10); RED CELL DISTRIBUTION WIDTH 12.2 % (12.0-15.0); WHITE BLOOD COUNT 7.4 x10^3/uL (4.8-10.8)
[2021-06-30 18:35] LABS: ALBUMIN 4.2 g/dL (3.2-5.5); BILIRUBIN,TOTAL 0.6 mg/dL (0.2-1.0); CALCIUM 8.9 mg/dL (8.5-10.3); CREATININE 0.8 mg/dL (0.6-1.2); POTASSIUM 3.4 mmol/L (3.5-5.0); TOTAL PROTEIN 8.3 g/dL (6.7-8.2)
--- NOTE | 2021-06-30 19:58 | ED Physician Documentation ---
PD HPI BACK PAIN - Stated complaint Stated Complaint: BACK PX - Chief complaint Chief Complaint: Back Pain - History obtained from History obtained from: Patient, EMS - History of Present Illness Timing - onset: Chronic Timing - details: Constant, Waxing and waning Pain level now: 10 Location: Lower, Right, Left Quality: Pain, Similar to prior episodes Associated symptoms: Weakness (states he has weakness in both legs although previous records indicate this has been a recurrent/chronic feature of his chronic back pain presentations). No: Fever, Numbness, Incontinent of urine, Unable to urinate Improves with: Rest Worsened by: Movement Recently seen: Emergency Dept - Additional information Additional information: BIBA for c/o lower back pain. This is his 7th visit to this ED over past 12 days; he was admitted on one of these visits for hyponatremia with admission on 06/28 and was discharged approximately 6 hours prior to returning to the ED. He is homeless, has been provided resources and met with SW recently for this issue. While awaiting evaluation in ED but before beginning of my shift, patient reportedly had unwitnessed fall from the stretcher. ED RN immediately evaluated patient and he was AAOx3 without new c/o; at that point, he was placed in a cervical collar and CTH and CT neck were ordered by one of the other ED providers along with basic blood tests Review of Systems Cardiac: reports: Reviewed and negative Respiratory: reports: Reviewed and negative GI: reports: Reviewed and negative : denies: Unable to Void, Incontinent Musculoskeletal: reports: Back pain Neurologic: reports: Generalized weakness (BLE), Head injury. denies: Focal weakness, Numbness, Confused, Altered mental status, Headache, LOC PD PAST MEDICAL HISTORY - Past Medical History Cardiovascular: None Respiratory: None Neuro: None Endocrine/Autoimmune: None GI: GI bleed Musculoskeletal: Osteoarthritis, Chronic back pain - Past Surgical History Past Surgical History: No Ortho: Other - Present Medications Home Medications: Ambulatory Orders Medication Instructions Recorded Confirmed No Known Home Medications 06/29/21 06/29/21 - Allergies Allergies/Adverse Reactions: Allergies Allergy/AdvReac Type Severity Reaction Status Date / Time No Known Drug Allergies Allergy Verified 06/30/21 18:07 - Social History Does the pt smoke?: Yes Smoking Status: Current every day smoker Does the pt drink ETOH?: Yes Does the pt have substance abuse?: No - Immunizations Immunizations are current?: No - POLST Patient has POLST: No POLST Status: Full Code PD ED PE NORMAL - Vitals Vital signs reviewed: Yes - General General: Alert and oriented X 3, No acute distress, Well developed/nourished - HEENT HEENT: Atraumatic, PERRL, EOMI, Other (no facial swelling , no facial tenderness) - Neck Neck: No bony TTP - Cardiac Cardiac: RRR, No murmur - Respiratory Respiratory: No respiratory distress, Clear bilaterally - Abdomen Abdomen: Soft, Non tender - Back Back: No CVA TTP, No spinal TTP - Extremities Extremities: No deformity, No tenderness to palpate, No edema - Neuro Neuro: Alert and oriented X 3, cryptozoologist 2-12 intact, No motor deficit (5/5 bilateral dorsiflexion and plantarflexion, 4/5 bilateral leg lift (iliopsoas)), No sensory deficit (LTS intact BLE) Eye Opening: Spontaneous Motor: Obeys Commands Verbal: Oriented GCS Score: 15 Results - Vitals Vitals: Vital Signs - 24 hr 06/30/21 06/30/21 18:07 20:54 Temperature 36.3 C L Heart Rate 99 95 Respiratory 16 18 Rate Blood Pressure 113/57 L 123/65 O2 Saturation 100 98 Oxygen O2 Source Room air - Labs Labs: Laboratory Tests 06/30/21 06/30/21 18:15 18:15 WBC 7.4 RBC 4.41 L Hgb 14.5 Hct 41.7 L MCV 94.6 H MCH 32.9 H MCHC 34.8 RDW 12.2 Plt Count 159 MPV 9.5 Neut # (Auto) 5.5 Lymph # (Auto) 1.2 L [place] # (Auto) 0.7 Eos # (Auto) 0.0 Baso # (Auto) 0.0 Absolute Nucleated RBC 0.00 Nucleated RBC % 0.0 Sodium 131 L Potassium 3.4 L Chloride 94 L Carbon Dioxide 25 Anion Gap 12.0 BUN 8 Creatinine 0.8 Estimated GFR (MDRD) 96 Glucose 93 Calcium 8.9 Total Bilirubin 0.6 AST 34 ALT 16 Alkaline Phosphatase 76 Total Protein 8.3 H Albumin 4.2 Globulin 4.1 Albumin/Globulin Ratio 1.0 Lipase 46 - Rads (name of study) CT head Radiology: Prelim report reviewed, See rad report CT cervical spine Radiology: Prelim report reviewed, See rad report PD MEDICAL DECISION MAKING - ED course Complexity details: reviewed old records, reviewed results, re-evaluated patient, considered differential, d/w patient ED course: no emergent findings on blood tests, CTH, CT cervical spine. CTH interpretation of "moderate right maxillary sinus disease with layering fluid" but there is no swelling nor tenderness on exam of this area. I reviewed results with patient. He is able to ambulate with walker in hallway (to and from bathroom) without apparent difficulty nor distress. He is given IM toradol and a lidocaine patch is placed to lower back. he does not bargain nor argue regarding medications and is comfortable with d/c Departure - Departure Disposition: 01 Home, Self Care Clinical Impression: Back pain Qualifiers: Back pain location: low back pain Chronicity: chronic Back pain laterality: bilateral Sciatica presence: without sciatica Qualified Code(s): M54.50 - Low back pain, unspecified Condition: Good Instructions: ED Neck Back Pain General Follow-Up: Dameon Ponce [Physician No Access] - Within 1 week Discharge Date/Time: 06/30/21 20:56
--- NOTE | 2021-06-30 20:09 | CT Report ---
PROCEDURE: HEAD WO INDICATIONS: neck pain/fall TECHNIQUE: Noncontrast 4.5 mm thick angled axial sections acquired from the foramen magnum to the vertex. For r adiation dose reduction, the following was used: automated exposure control, adjustment of mA and/or kV according to patient size. COMPARISON: 06/18/2021. FINDINGS: Image quality: Excellent. CSF spaces: Basal cisterns are patent. No extra-axial fluid collections. Ventricles are normal in size and shape. Brain: No midline shift. No intracranial masses or hemorrhage. Bell-white matter interface is norm al. Skull and face: Calvarium and visualized facial bones are intact, without suspicious lesions. Sinuses: There is moderate mucosal thickening of the right maxillary sinus with layering fluid. No de finite fracture of the adjacent maxillary sinus kay. There is no overlying soft tissue edema of the right maxilla. Remaining paranasal sinuses and mastoids are clear. IMPRESSION: CT head without acute intracranial abnormalities. No acute calvarial fractures. Moderate right maxillary sinus disease with layering fluid. No evidence to suggest maxillary wall fra ctures. If there is trauma to the right face with focal tenderness, consider dedicated facial bone CT . Reviewed by: Ángel Levine MD on 06/30/2021 8:08 PM PST Approved by: Ángel Levine MD on 06/30/2021 8:08 PM PST Station ID: [id number]
--- NOTE | 2021-06-30 20:16 | CT Report ---
PROCEDURE: CERVICAL SPINE WO INDICATIONS: fell out of bed TECHNIQUE: Noncontrast 3 mm thick sections acquired from the skull base to the T4 level. Sagittal and coronal r eformats were then constructed. For radiation dose reduction, the following was used: automated exp osure control, adjustment of mA and/or kV according to patient size. COMPARISON: 06/18/2021 FINDINGS: Image quality: Excellent. Bones: No acute fractures or dislocations. Visualized superior ribs are intact. Multilevel cervica l spondylosis as before. Findings are most severe at C6-7 and C5-6. No acute compression fractures. C ranial cervical junction is intact. Soft tissues: Prevertebral soft tissues are normal in thickness. No paravertebral hematomas. No ap ical pneumothoraces. Redemonstration of previously described 1.4 cm prominent right intraparotid lym ph node. Smaller, prominent left intraparotid lymph node also stable. Right maxillary sinus disease. IMPRESSION: 1. Cervical spine without acute fracture or traumatic malalignment. 2. Severe multilevel cervical spondylosis most prominent at C5-6 and C6-7. 3. Redemonstration of multiple enlarged right intraparotid lymph nodes as well as numerous prominent left intraparotid lymph nodes. Recommend outpatient follow-up if not already performed. 4. Right maxillary sinus disease. No evidence for fracture of the maxillary sinus kay. Recommend cl inical correlation. Reviewed by: Ángel Levine MD on 06/30/2021 8:14 PM PST Approved by: Ángel Levine MD on 06/30/2021 8:14 PM PST Station ID: [id number]
[2021-06-30] MEDS ORDERED: LIDOCAINE PATCH 5% TOP STA (20:41)
[2021-06-30] MEDS ORDERED: KETOROLAC 60 MG/2 ML VIAL IM STA (20:41)
[2021-06-30 20:56] VITALS: BP 123/65
== END 2021-06-30 20:56 | disposition home or self-care (01) ==
LOC: EDUNIT# → EDBD → ED 17:52
DX: M54.50 Low back pain, unspecified (principal); G89.29 Other chronic pain; R29.898 Other symptoms and signs involving the musculoskeletal system; M47.812 Spondylosis without myelopathy or radiculopathy, cervical region; J32.0 Chronic maxillary sinusitis; F17.200 Nicotine dependence, unspecified, uncomplicated; Z59.00 Homelessness unspecified
CPT/HCPCS: 36415; 80053; 83690; 85025; 96372; 99284

== ENCOUNTER 2021-07-01 13:07 | Outpatient (CLI) | payer MEDICARE | END 2021-07-01 13:08 | disposition critical access hospital (66) | LOC: EMS 13:07 | DX: M54.2 Cervicalgia (principal); M54.9 Dorsalgia, unspecified; G89.29 Other chronic pain; Z59.00 Homelessness unspecified | CPT/HCPCS: A0425; A0429 ==

== ENCOUNTER 2021-07-01 13:33 | Emergency (ER) | payer MEDICARE ==
[2021-07-01 13:41] VITALS: BP 131/83
== END 2021-07-01 17:13 | disposition left against medical advice (07) ==
LOC: EDUNIT# → ED 13:33
DX: Z53.21 Procedure and treatment not carried out due to patient leaving prior to being seen by health care provider (principal)

== ENCOUNTER 2021-07-02 03:40 | Outpatient (CLI) | payer MEDICARE | END 2021-07-02 03:41 | disposition critical access hospital (66) | LOC: EMS 03:40 | DX: M54.50 Low back pain, unspecified (principal); G89.29 Other chronic pain; F10.129 Alcohol abuse with intoxication, unspecified | CPT/HCPCS: A0425; A0429 ==

== ENCOUNTER 2021-07-02 03:58 | Emergency (ER) | payer MEDICARE ==
--- NOTE | 2021-07-02 06:42 | ED Physician Documentation ---
History of Present Illness - Stated complaint Stated Complaint: BACK PAIN - Chief complaint Chief Complaint: Exposure - History obtained from History obtained from: Patient - Additonal information Additional information: Patient comes emergency department chief complaint of low back pain and "I am cold". Patient has been sleeping outside in the rain, as he is homeless. He denies any new injuries to his back. He has a longstanding history of back pain for which she has been seen multiple times recently. During screening questions, patient does admit to feeling suicidal sometimes, but states that he is very unlikely to ever act on it. He is not currently feeling suicidal. Patient denies any other complaints at this time. Review of Systems Ten Systems: 10 systems reviewed and negative Constitutional: reports: Reviewed and negative Eyes: reports: Reviewed and negative Ears: reports: Reviewed and negative Nose: reports: Reviewed and negative Throat: reports: Reviewed and negative Cardiac: reports: Reviewed and negative Respiratory: reports: Reviewed and negative GI: reports: Reviewed and negative : reports: Reviewed and negative Skin: reports: Reviewed and negative Musculoskeletal: reports: Back pain Neurologic: reports: Reviewed and negative Psychiatric: reports: Reviewed and negative Endocrine: reports: Reviewed and negative Immunocompromised: reports: Reviewed and negative PD PAST MEDICAL HISTORY - Past Medical History Past Medical History: Yes Cardiovascular: None Respiratory: None Neuro: None Endocrine/Autoimmune: None GI: GI bleed Musculoskeletal: Osteoarthritis, Chronic back pain - Past Surgical History Past Surgical History: Yes Ortho: Other - Present Medications Home Medications: Ambulatory Orders Medication Instructions Recorded Confirmed No Known Home Medications 06/29/21 07/02/21 - Allergies Allergies/Adverse Reactions: Allergies Allergy/AdvReac Type Severity Reaction Status Date / Time No Known Drug Allergies Allergy Verified 07/01/21 13:39 - Social History Does the pt smoke?: Yes Smoking Status: Current every day smoker Does the pt drink ETOH?: Yes Does the pt have substance abuse?: No - Immunizations Immunizations are current?: No - POLST Patient has POLST: No POLST Status: Full Code PD ED PE NORMAL - Vitals Vital signs reviewed: Yes - General General: No acute distress, Well developed/nourished, Other (Patient smells of alcohol and appears mildly intoxicated but otherwise is alert and appropriate.) - HEENT HEENT: Atraumatic, PERRL, EOMI, Moist mucous membranes - Neck Neck: Supple, no meningeal sign - Cardiac Cardiac: RRR, No murmur - Respiratory Respiratory: No respiratory distress, Clear bilaterally - Abdomen Abdomen: Soft, Non tender, Non distended - Back Back: No spinal TTP - Derm Derm: Normal color, Warm and dry, No rash - Extremities Extremities: No deformity, No edema, No calf tenderness / cord - Neuro Neuro: Other (Mildly intoxicated otherwise grossly intact) - Psych Psych: Normal mood, Normal affect Results - Vitals Vitals: Vital Signs - 24 hr 07/02/21 07/02/21 04:08 05:52 Temperature 34.6 C L 36.6 C Heart Rate 82 Respiratory 14 Rate Blood Pressure 139/110 H O2 Saturation 98 Oxygen O2 Source Room air PD MEDICAL DECISION MAKING - ED course Complexity details: considered differential, d/w patient ED course: The patient was found to be mildly hypothermic in the emergency department. He was given warm blankets, as well as a hot drink, and allowed to sleep in the emergency department for about 3 hours and warm. At the time of this dictation, he was found to be improved, clinically sober, and stable for discharge. Departure - Departure Disposition: 01 Home, Self Care Clinical Impression: Hypothermia Qualifiers: Encounter type: initial encounter Qualified Code(s): T68.XXXA - Hypothermia, initial encounter Alcohol intoxication Qualifiers: Complication of substance-induced condition: uncomplicated Qualified Code(s): F10.920 - Alcohol use, unspecified with intoxication, uncomplicated Back pain Qualifiers: Back pain location: low back pain Chronicity: chronic Back pain laterality: unspecified Sciatica presence: without sciatica Qualified Code(s): M54.50 - Low back pain, unspecified Condition: Stable Instructions: ED Alcohol Intoxication, ED Neck Back Pain General
[2021-07-02 07:26] VITALS: BP 140/70
== END 2021-07-02 07:25 | disposition home or self-care (01) ==
LOC: EDUNIT# → ED 03:58
DX: T68.XXXA Hypothermia, initial encounter (principal); X31.XXXA Exposure to excessive natural cold, initial encounter; F10.920 Alcohol use, unspecified with intoxication, uncomplicated; M54.50 Low back pain, unspecified; G89.29 Other chronic pain; F17.200 Nicotine dependence, unspecified, uncomplicated; Z59.00 Homelessness unspecified
CPT/HCPCS: 99282; 99283

== ENCOUNTER 2021-07-06 15:17 | Outpatient (CLI) | payer MEDICARE, MEDICAID | END 2021-07-06 15:18 | disposition critical access hospital (66) | LOC: EMS 15:17 | DX: R52 Pain, unspecified (principal) | CPT/HCPCS: A0425; A0429 ==

== ENCOUNTER 2021-07-06 15:49 | Emergency (ER) | payer MEDICARE, MEDICAID ==
[2021-07-06 15:56] VITALS: BP 139/88
--- NOTE | 2021-07-06 16:00 | ED Physician Documentation ---
History of Present Illness - Stated complaint Stated Complaint: BODY PX - Chief complaint Chief Complaint: General - History obtained from History obtained from: Patient - Additonal information Additional information: 70-year-old gentleman with chronic back pain presents for continued chronic back pain. It is not worse than any other day, but he has primary care access issues and transportation issues related to homelessness and as such has not really been able to follow-up. He fully admits there is no acute issue today but presents by ambulance complaining that he cannot go see her primary care physician because of homelessness and lack of transportation. He complains of all over body pain, neck, back, hips, all of his joints. Review of Systems Constitutional: denies: Fever, Chills Eyes: denies: Loss of vision, Decreased vision Ears: reports: Reviewed and negative Nose: reports: Reviewed and negative Throat: reports: Reviewed and negative Cardiac: reports: Reviewed and negative Respiratory: reports: Reviewed and negative PD PAST MEDICAL HISTORY - Past Medical History Cardiovascular: None Respiratory: None Neuro: None Endocrine/Autoimmune: None GI: GI bleed Musculoskeletal: Osteoarthritis, Chronic back pain - Past Surgical History Past Surgical History: Yes Ortho: Other - Present Medications Home Medications: Ambulatory Orders Medication Instructions Recorded Confirmed No Known Home Medications 06/29/21 07/06/21 - Allergies Allergies/Adverse Reactions: Allergies Allergy/AdvReac Type Severity Reaction Status Date / Time No Known Drug Allergies Allergy Verified 07/06/21 15:53 - Social History Does the pt smoke?: Yes Smoking Status: Current every day smoker Does the pt drink ETOH?: Yes Does the pt have substance abuse?: No - Immunizations Immunizations are current?: No - POLST Patient has POLST: No POLST Status: Full Code PD ED PE NORMAL - Vitals Vital signs reviewed: Yes - General General: Alert and oriented X 3, No acute distress - HEENT HEENT: PERRL, EOMI - Neck Neck: Supple, no meningeal sign, No bony TTP - Abdomen Abdomen: Normal bowel sounds, Soft, Non tender - Back Back: Other (He appears well but disheveled. There is no specific joint tenderness elicited with palpation of the shoulders, neck, back. He changes position from laying to sitting without any overt evidence of pain.) - Extremities Extremities: Other (The patient has equal and normal Achilles and patellar reflexes bilaterally. Normal sensation in all areas of the legs. Patient denies saddle anesthesia. Normal strength in flexion-extension at the ankles, knees, and flexion of the hips.) - Neuro Neuro: Alert and oriented X 3, Normal speech Results - Vitals Vitals: Vital Signs - 24 hr 07/06/21 15:54 Temperature 37.0 C Heart Rate 86 Respiratory 16 Rate Blood Pressure 139/88 H O2 Saturation 100 Oxygen O2 Source Room air PD MEDICAL DECISION MAKING - ED course ED course: 70-year-old gentleman comes the emergency department for chronic back pain. Of note this is his 10th visit in the last month, mostly for back pain but also at times just because he does not want to be outside in the cold. He was seen and evaluated. There is no emergency medical condition. I did asked the social work to see him given his multitude of social issues. Departure - Departure Disposition: 01 Home, Self Care Clinical Impression: Homeless single person Chronic back pain Qualifiers: Back pain location: back pain in unspecified location Back pain laterality: unspecified Qualified Code(s): M54.9 - Dorsalgia, unspecified Condition: Good Record reviewed to determine appropriate education?: Yes Instructions: ED Chronic Pain Management Comments: As discussed, you are welcome to return anytime for evaluation, but we are really unable to make any forward motion with your chronic problems until you can settle down in one place and find a primary care physician. Follow the instructions from the older adult social work specialist regarding the above. Discharge Date/Time: 07/06/21 17:01
== END 2021-07-06 17:01 | disposition home or self-care (01) ==
LOC: ED 15:49
DX: M54.9 Dorsalgia, unspecified (principal); G89.29 Other chronic pain; F17.200 Nicotine dependence, unspecified, uncomplicated; Z59.00 Homelessness unspecified
CPT/HCPCS: 99283

== ENCOUNTER 2021-07-08 10:09 | Emergency (ER) | payer MEDICARE, MEDICAID ==
[2021-07-08 11:00] VITALS: BP 165/87
--- NOTE | 2021-07-08 12:42 | ED Physician Documentation ---
History of Present Illness - Stated complaint Stated Complaint: LEG/BACK PAIN - Chief complaint Chief Complaint: Ext Problem - History obtained from History obtained from: Patient - History of Present Illness Timing: Chronic Pain level max: 5 Pain level now: 5 - Additonal information Additional information: Patient is a 70-year-old male with chronic back pain. He states that he is staying at a half-way and does not have a primary care doctor. He states the pain is no different than usual. He states that he is mostly here to talk to social work about housing resources. No numbness or tingling. No falls. No trauma. Worse with movement, better with rest. Review of Systems Constitutional: denies: Fever, Chills Respiratory: denies: Cough GI: denies: Nausea, Vomiting, Diarrhea Skin: denies: Rash Neurologic: denies: Headache PD PAST MEDICAL HISTORY - Past Medical History Past Medical History: Yes Cardiovascular: None Respiratory: None Neuro: None Endocrine/Autoimmune: None GI: GI bleed Musculoskeletal: Osteoarthritis, Chronic back pain - Past Surgical History Past Surgical History: Yes Ortho: Other - Present Medications Home Medications: Ambulatory Orders Medication Instructions Recorded Confirmed No Known Home Medications 06/29/21 07/06/21 - Allergies Allergies/Adverse Reactions: Allergies Allergy/AdvReac Type Severity Reaction Status Date / Time No Known Drug Allergies Allergy Verified 07/08/21 11:00 - Social History Does the pt smoke?: Yes Smoking Status: Current every day smoker Does the pt drink ETOH?: Yes Does the pt have substance abuse?: No - Immunizations Immunizations are current?: No - POLST Patient has POLST: No POLST Status: Full Code PD ED PE NORMAL - Vitals Vital signs reviewed: Yes - General General: Alert and oriented X 3, No acute distress, Well developed/nourished - HEENT HEENT: Moist mucous membranes - Neck Neck: Supple, no meningeal sign - Cardiac Cardiac: RRR, Strong equal pulses - Respiratory Respiratory: No respiratory distress, Clear bilaterally - Abdomen Abdomen: Soft, Non tender, Non distended - Back Back: No spinal TTP, Other (No midline tenderness to palpation or percussion. No step-off or deformity.) - Derm Derm: Warm and dry - Extremities Extremities: Normal ROM s pain, No edema - Neuro Neuro: Alert and oriented X 3, No motor deficit, No sensory deficit, Other (Normal bilateral lower extremity patellar and ankle jerk reflexes. Normal great toe extension bilaterally. no saddle anesthesia) - Psych Psych: Normal mood, Normal affect Results - Vitals Vitals: Vital Signs - 24 hr 07/08/21 10:50 Temperature 36.5 C Heart Rate 85 Respiratory 17 Rate Blood Pressure 165/87 H O2 Saturation 98 Oxygen O2 Source Room air PD MEDICAL DECISION MAKING - ED course Complexity details: considered differential, d/w patient ED course: Patient with chronic pain. Will refer him to his primary care provider. Social work was consulted regarding resources for home. Patient counseled regarding signs and symptoms for which I believe and urgent re-evaluation would be necessary. Patient with good understanding of and agreement to plan and is comfortable going home at this time This document was made in part using voice recognition software. While efforts are made to proofread this document, sound alike and grammatical errors may occur. Departure - Departure Disposition: 01 Home, Self Care Clinical Impression: Chronic back pain Qualifiers: Back pain location: low back pain Back pain laterality: bilateral Sciatica presence: without sciatica Qualified Code(s): M54.50 - Low back pain, unspecified Condition: Good Instructions: ED Chronic Pain Management Follow-Up: Won Bennett MD [Physician No Access] - Jin Collins MD [Provider Admit Priv/Credential] - [facility] [Provider Group] [facility] [Provider Group] [facility] [Provider Group] Comments: You need to follow-up with your primary care provider for your chronic medical issues. A list of providers have been given to you. Social work also gave you a packet of resources today.
== END 2021-07-08 13:37 | disposition home or self-care (01) ==
LOC: ED 10:09
DX: M54.50 Low back pain, unspecified (principal); G89.29 Other chronic pain; F17.200 Nicotine dependence, unspecified, uncomplicated; Z59.02 Unsheltered homelessness
CPT/HCPCS: 80048; 85025; 99282; 99283

== ENCOUNTER 2021-07-08 19:33 | Outpatient (CLI) | payer MEDICARE, MEDICAID | END 2021-07-08 19:34 | disposition critical access hospital (66) | LOC: EMS 19:33 | DX: M79.605 Pain in left leg (principal) | CPT/HCPCS: A0425; A0429 ==

== ENCOUNTER 2021-07-08 19:50 | Emergency (ER) | payer MEDICARE, MEDICAID ==
[2021-07-08 19:58] VITALS: BP 182/93
[2021-07-08] MEDS ORDERED: MELOXICAM 7.5 MG TABLET PO STA (19:59)
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
== END 2021-07-08 20:09 | disposition home or self-care (01) ==
LOC: EDUNIT# → ED 19:50
DX: M25.562 Pain in left knee (principal); G89.29 Other chronic pain; M54.50 Low back pain, unspecified; Z59.02 Unsheltered homelessness; F17.200 Nicotine dependence, unspecified, uncomplicated
CPT/HCPCS: 99282; 99283; A9270; 80048; 85025

== ENCOUNTER 2021-07-09 17:51 | Outpatient (CLI) | payer MEDICARE, MEDICAID | END 2021-07-09 17:52 | disposition critical access hospital (66) | LOC: EMS 17:51 | DX: M25.569 Pain in unspecified knee (principal); M54.2 Cervicalgia; M54.9 Dorsalgia, unspecified; G89.29 Other chronic pain | CPT/HCPCS: A0425; A0429 ==

== ENCOUNTER 2021-07-09 18:10 | Emergency (ER) | payer MEDICARE, MEDICAID ==
[2021-07-09 18:29] VITALS: BP 115/65
--- NOTE | 2021-07-09 21:10 | ED Physician Documentation ---
History of Present Illness - Stated complaint Stated Complaint: L KNEE PAIN - Chief complaint Chief Complaint: Ext Problem - History obtained from History obtained from: Patient - History of Present Illness Timing: Today, Chronic Pain level max: 8 Pain level now: 6 - Additonal information Additional information: Patient is a 70-year-old male, homeless. Here for his third visit within 24 hours. He was taken to a residential in [place] last night. He states that he obtained A ride back to [facility] today. He does not know how he came back to the [place] or who he came to the [place] with. He states he wanted to be closer to his girlfriend but now has nowhere to stay tonight so came here. The patient has chronic knee pain. He has been walking around [place] all day. He is walking in the emergency department without any difficulty. He has been evaluated for this several times. No changes to the current condition. Review of Systems Constitutional: denies: Fever, Chills GI: denies: Vomiting, Diarrhea Skin: denies: Rash Musculoskeletal: denies: Neck pain, Back pain Neurologic: denies: Headache PD PAST MEDICAL HISTORY - Past Medical History Cardiovascular: None Respiratory: None Neuro: None Endocrine/Autoimmune: None GI: GI bleed Musculoskeletal: Osteoarthritis, Chronic back pain - Past Surgical History Past Surgical History: Yes Ortho: Other - Present Medications Home Medications: Ambulatory Orders Medication Instructions Recorded Confirmed No Known Home Medications 06/29/21 07/06/21 - Allergies Allergies/Adverse Reactions: Allergies Allergy/AdvReac Type Severity Reaction Status Date / Time No Known Drug Allergies Allergy Verified 07/09/21 18:23 - Social History Does the pt smoke?: Yes Smoking Status: Current every day smoker Does the pt drink ETOH?: Yes Does the pt have substance abuse?: No - Immunizations Immunizations are current?: No - POLST Patient has POLST: No POLST Status: Full Code PD ED PE NORMAL - Vitals Vital signs reviewed: Yes - General General: Alert and oriented X 3, No acute distress - HEENT HEENT: Moist mucous membranes - Neck Neck: Supple, no meningeal sign - Cardiac Cardiac: RRR, Strong equal pulses - Respiratory Respiratory: No respiratory distress, Clear bilaterally - Derm Derm: Warm and dry - Extremities Extremities: Other (No swelling. No tenderness. Normal range of motion of the left knee.) - Neuro Neuro: Alert and oriented X 3 Results - Vitals Vitals: Vital Signs - 24 hr 07/09/21 18:20 Temperature 36 C L Heart Rate 90 Respiratory 18 Rate Blood Pressure 115/65 O2 Saturation 96 Oxygen O2 Source Room air PD MEDICAL DECISION MAKING - ED course Complexity details: considered differential, d/w patient ED course: No emergency medical condition at this time. Patient is to follow-up with his primary care doctor. This document was made in part using voice recognition software. While efforts are made to proofread this document, sound alike and grammatical errors may occur. Departure - Departure Disposition: 01 Home, Self Care Clinical Impression: Homeless single person Chronic pain Qualifiers: Chronic pain type: other chronic pain Qualified Code(s): G89.29 - Other chronic pain Condition: Good Instructions: ED Chronic Pain Management Follow-Up: your,doctor for further care [Other] Comments: You need to follow up with a primary care for further care. You also need to follow the directions given to you multiple times by the social workers. Discharge Date/Time: 07/09/21 21:33
== END 2021-07-09 21:33 | disposition home or self-care (01) ==
LOC: EDUNIT# → ED 18:10
DX: G89.29 Other chronic pain (principal); Z59.02 Unsheltered homelessness; F17.200 Nicotine dependence, unspecified, uncomplicated
CPT/HCPCS: 99281; 99283

== ENCOUNTER 2021-07-11 18:22 | Outpatient (CLI) | payer MEDICARE, MEDICAID | END 2021-07-11 18:23 | disposition short-term general hospital (02) | LOC: EMS 18:22 | DX: M54.50 Low back pain, unspecified (principal); M79.605 Pain in left leg; M79.604 Pain in right leg; G89.29 Other chronic pain | CPT/HCPCS: A0425; A0429 ==

== ENCOUNTER 2021-07-16 19:57 | Outpatient (CLI) | payer MEDICARE, MEDICAID | END 2021-07-16 23:59 | disposition critical access hospital (66) | LOC: EMS 19:57 | DX: M79.606 Pain in leg, unspecified (principal); G89.29 Other chronic pain; R53.1 Weakness; Z59.02 Unsheltered homelessness | CPT/HCPCS: A0425; A0429 ==

== ENCOUNTER 2021-07-16 20:11 | Emergency (ER) | payer MEDICARE, MEDICAID ==
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
[2021-07-16 21:12] VITALS: BP 160/90
== END 2021-07-16 21:11 | disposition home or self-care (01) ==
LOC: EDUNIT# → ED 20:11
DX: M54.50 Low back pain, unspecified (principal); M79.606 Pain in leg, unspecified; F17.200 Nicotine dependence, unspecified, uncomplicated; Z59.00 Homelessness unspecified
CPT/HCPCS: 99281; 99283

== ENCOUNTER 2021-07-17 08:47 | Outpatient (CLI) | payer MEDICARE, MEDICAID | END 2021-07-17 08:48 | disposition critical access hospital (66) | LOC: EMS 08:47 | DX: M54.9 Dorsalgia, unspecified (principal); G89.29 Other chronic pain; R26.81 Unsteadiness on feet | CPT/HCPCS: A0425; A0429 ==

== ENCOUNTER 2021-07-17 09:06 | Emergency (ER) | payer MEDICARE, MEDICAID ==
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
[2021-07-17] MEDS ORDERED: ACETAMINOPHEN 325 MG TABLET PO STA (09:16)
[2021-07-17 09:19] VITALS: BP 170/99
== END 2021-07-17 09:41 | disposition home or self-care (01) ==
LOC: EDBD → ED 09:06
DX: M54.50 Low back pain, unspecified (principal); G89.29 Other chronic pain; Z59.02 Unsheltered homelessness; F17.200 Nicotine dependence, unspecified, uncomplicated
CPT/HCPCS: 99282; 99283

== ENCOUNTER 2021-07-17 11:23 | Outpatient (CLI) | payer MEDICARE, MEDICAID | END 2021-07-17 11:24 | disposition critical access hospital (66) | LOC: EMS 11:23 | DX: R52 Pain, unspecified (principal) | CPT/HCPCS: A0425; A0429 ==

== ENCOUNTER 2021-07-17 11:41 | Emergency (ER) | payer MEDICARE, MEDICAID ==
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
[2021-07-17 11:51] VITALS: BP 139/77
== END 2021-07-17 12:40 | disposition home or self-care (01) ==
LOC: EDBD → EDUNIT# → ED 11:41
DX: M54.50 Low back pain, unspecified (principal); M79.606 Pain in leg, unspecified; Z59.00 Homelessness unspecified; F17.200 Nicotine dependence, unspecified, uncomplicated

== ENCOUNTER 2021-07-17 17:32 | Outpatient (CLI) | payer MEDICARE, MEDICAID | END 2021-07-17 17:33 | disposition critical access hospital (66) | LOC: EMS 17:32 | DX: M54.9 Dorsalgia, unspecified (principal); G89.29 Other chronic pain; M25.462 Effusion, left knee | CPT/HCPCS: A0425; A0429 ==

== ENCOUNTER 2021-07-17 17:48 | Emergency (ER) | payer MEDICARE, MEDICAID ==
[2021-07-17 17:57] VITALS: BP 155/97
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
== END 2021-07-17 19:13 | disposition home or self-care (01) ==
LOC: EDUNIT# → ED 17:48
DX: M54.50 Low back pain, unspecified (principal); G89.29 Other chronic pain; M79.604 Pain in right leg; Z59.02 Unsheltered homelessness; F17.200 Nicotine dependence, unspecified, uncomplicated
CPT/HCPCS: 99282; 99283; A9270

== ENCOUNTER 2021-07-19 08:34 | Outpatient (CLI) | payer MEDICARE, MEDICAID | END 2021-07-19 08:35 | disposition critical access hospital (66) | LOC: EMS 08:34 | DX: M54.9 Dorsalgia, unspecified (principal); M54.2 Cervicalgia; M25.569 Pain in unspecified knee; G89.29 Other chronic pain | CPT/HCPCS: A0425; A0429 ==

== ENCOUNTER 2021-07-19 08:51 | Emergency (ER) | payer MEDICARE, MEDICAID ==
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
[2021-07-19] MEDS ORDERED: IBUPROFEN 600 MG TABLET PO STA (09:30)
[2021-07-19] MEDS ORDERED: ACETAMINOPHEN 325 MG TABLET PO STA (09:30)
--- NOTE | 2021-07-19 10:15 | CT Report ---
PROCEDURE: LUMBAR SPINE WO INDICATIONS: chronic back pain but fell few days ago, worse. TECHNIQUE: Noncontrast 3 mm thick sections acquired from the T12 level to the sacrum. Sagittal and coronal refo rmats were constructed. For radiation dose reduction, the following was used: automated exposure co ntrol, adjustment of mA and/or kV according to patient size. COMPARISON: 06/18/2021. FINDINGS: Image quality: Excellent. Bones: No acute vertebral body compression fractures. No suspicious lytic or blastic bony lesions. Central spinal caliber is of normal overall caliber. No pars defects. Mild to moderate levoconvex scoliosis is seen. Mild retrolisthesis is seen at the L1-L2 level. Note is made of vacuum disc phenomenon and posterior to the L3 vertebral body, which is stable from t he prior. Multiple levels of degenerative change are seen, which are similar to the recent prior CT study, with out a sonia, acute abnormality identified. Soft tissues: No retroperitoneal masses or hematomas. Visualized aorta is normal in caliber. Promi nent atherosclerotic calcification can be seen. Diverticulosis can be seen, without sonia findings of active diverticulitis. IMPRESSION: No sonia, acute abnormality can be seen. This patient has widespread moderate to prominent degenerative changes, which are similar to the prio r CT performed one month previously. If it would be helpful for clinical management decision making, please consider a dedicated, schedule d lumbar MRI for further evaluation (assuming that there is no contraindication). Reviewed by: Patricio Mclaughlin MD on 07/19/2021 9:14 AM [facility] Approved by: Patricio Mclaughlin MD on 07/19/2021 9:14 AM [facility] Station ID: [id number]
[2021-07-19 10:53] VITALS: BP 126/81
== END 2021-07-19 11:48 | disposition home or self-care (01) ==
LOC: EDUNIT# → ED 08:51
DX: M54.41 Lumbago with sciatica, right side (principal); G89.29 Other chronic pain; M47.26 Other spondylosis with radiculopathy, lumbar region; Z91.81 History of falling; F17.200 Nicotine dependence, unspecified, uncomplicated; Z59.02 Unsheltered homelessness
CPT/HCPCS: 72131; 99282; 99284; A9270